=== PATIENT | female | born 1985 | race Caucasian/White ===

== ENCOUNTER 2020-05-23 14:19 | Outpatient (CLI) | payer BC ==
[2020-05-23 15:05] LABS: Protein/Creatinine Ratio,Urine 0.154
[2020-05-23 15:06] LABS: Creatinine,Urine Random 90.1 mg/dL
[2020-05-23 15:16] LABS: Appearance,Urine Cloudy (Clear); Bacteria,Urine Occasional /hpf; Bilirubin,Urine Negative (Negative); Blood,Urine Negative (Negative); Color,Urine Yellow; Glucose,Urine (UA) Negative (Negative); Hyaline Casts,Urine 4 /lpf (0-2); Ketones,Urine Negative (Negative); Leukocyte Esterase,Urine Negative (Negative); Mucus,Urine Rare /hpf; Nitrite,Urine Negative (Negative); Protein,Urine Negative (Negative); RBC,Urine 1 /hpf (0-5); Specific Gravity,Urine 1.017 (1.001-1.035); Squamous Epithelial Cell,Urine 10 /hpf (0-4); Urobilinogen,Urine <2.0 mg/dL (<2.0); WBC,Urine 9 /hpf (0-5)
[2020-05-23 15:32] LABS: ALT 11 U/L (4-34); AST 16 U/L (14-36); African American GFR (CKD) >90 (>60 ml/min/1.73 sqM); Blood Urea Nitrogen 10 mg/dL (7-17); LDH 415 U/L (313-618); Non-African American GFR(CKD) >90 (>60 ml/min/1.73 sqM); Uric Acid 4.6 mg/dL (3.7-7.4)
[2020-05-23 15:51] LABS: Basophils # (A) 0.1 k/uL (0-0.2); Basophils % (A) 0 %; Eosinophils # (A) 0.1 k/uL (0-0.7); Eosinophils % (A) 1 %; HGB 12.1 gm/dL (11.4-16.0); Lymphocytes # (A) 1.8 k/uL (1.0-4.8); Lymphocytes % (A) 12 %; MCH 26.6 pg (25.0-35.0); MCHC 31.7 g/dL (31.0-37.0); MCV 83.8 fL (80.0-100.0); Mean Platelet Volume 8.5; Monocytes # (A) 0.8 k/uL (0-1.0); Monocytes % (A) 5 %; Neutrophils # (A) 12.2 k/uL (1.3-7.7); Neutrophils % (A) 81 %; Platelet Count 192 k/uL (150-450); RBC 4.53 m/uL (3.80-5.40); RDW 15.5 % (11.5-15.5); WBC 15.1 k/uL (3.8-10.6)
--- NOTE | 2020-05-23 16:10 | US ---
EXAMINATION TYPE: US OB >= 14 wk fetus DATE OF EXAM: 05/23/2020 COMPARISON: None CLINICAL HISTORY: High BPHigh BP, 1 TECHNIQUE: Transabdominal (TA) GESTATIONAL AGE / DATING Physician Established: (38 weeks/1 days) EDC: 06/05/2020 Dates by LMP: Unknown Dates by First Scan: This is 1st scan here Dates by Current Scan: (38 weeks/0 days) EDC: 06/06/2020 SURVEY IUP: Single PLACENTA: Fundal/Posterior PREVIA: No Previa MIGUEL ANGEL: 12.6 cm Normal CERVICAL LENGTH (transabdominal: norm > 3.0cm): 4.0 cm BIOMETRY PRESENTATION: Vertex LIE: Longitudinal BPD: 9.5 cm 38 weeks / 6 days HC: 34.1 cm 39 weeks / 1 days AC: 34.0 cm 37 weeks / 6 days FL: 7.4 cm 37 weeks / 6 days ESTIMATED WEIGHT IN GRAMS: 3403 grams ESTIMATED WEIGHT IN LBS/OZ: 7 lbs. 8 oz. WEIGHT PERCENTAGE BASED ON ESTABLISHED DATES: 63% HC/AC: 1.00 Normal FL/AC: 21.79 Normal HEART RATE: 132 bpm RHYTHM: Normal Viable single IUP measuring 38 weeks 0 days with a heart rate of 132bpm and an estimated delivery marcy e of 06/06/2020. IMPRESSION: 1. Single intrauterine gestation estimated at 38 weeks 0 days gestation based on current ultrasound m easurements. Cardiac activity 132 bpm.
[2020-05-23 16:15] VITALS: BP 143/86; PULSE 85; RESP 16; TEMP 96.8
--- NOTE | 2020-06-12 08:29 | P.MSEPDOC ---
Presenting Problems - Arrival Data Date of Arrival on Unit: 05/23/20 Time of Arrival on Unit: 14:19 Mode of Transport: Ambulatory - Complaint OB-Reason for Admission/Chief Complaint: PIH Medical History - Information : 1 Para: 0 Term: 0 : 0 Abortions: Spontaneous or Elective: 0 Number of Living Children: 0 - Gestational Age Gestational Age by STACEY (wks/days): 38 Weeks and 1 Days Review of Systems - Review of Systems Constitutional: No problems Breast: No problems ENT: No problems Cardiovascular: No problems Respiratory: No problems Gastrointestinal: No problems Genitourinary: No problems Musculoskeletal: No problems Neurological: No problems Skin: No problems Vital Signs - Temperature Temperature: 96.8 F Temperature Source: Temporal Artery Scan - Pulse Pulse Oximetery Pulse Rate: 85 Pulse Assessment Method: Pulse Oximetry - Respirations Respiratory Rate: 16 Oxygen Delivery Method: Room Air O2 Sat by Pulse Oximetry: 98 - Blood Pressure Right Arm Blood Pressure: 143/86 Blood Pressure Mean: 105 Blood Pressure Source: Automatic Cuff Medical Screen Scoring (Pre) - Cervical Exam Dilation: Exam Deferred Effacement: Exam Deferred Membranes: Intact - Uterine Contractions Frequency: N/A Duration: N/A Intensity: N/A - Maternal Vital Signs Maternal Temperature: N/A Maternal Blood Pressure: Systolic >139 = 2 Signs of Preeclampsia: N/A Maternal Respirations: N/A - Maternal Trauma Maternal Trauma: N/A - Assessment - Baby A Baseline FHR: 125 Heart Rate - NICHD Category: Category I (Normal) = 0 NST: Reactive Position: N/A Station: N/A - Total Score - Baby A Total Score - Baby A: 2 - Total Score - Baby B Total Score - Baby B: 2 - Total Score - Baby C Total Score - Baby C: 2 - Level of Risk - Baby A Level of Risk - Baby A: Low (0-5) - Level of Risk - Baby B Level of Risk - Baby B: Low (0-5) - Level of Risk - Baby C Level of Risk - Baby C: Low (0-5) Physician Notification (Pre) - Physician Notified Physician Notified Date: 05/23/20 Physician Notified Time: 15:59 New Order Received: Yes - Notification Comment Comment: Dr. Ely called at office, report given on maternal and status, NST. reactive, all labs and urine WNL, protein/stencil cutter machine ratio 0.15, pt has no complaints at all,. U/S AFI12.6 and weight 7lb 8oz. Orders to discharge pt with instructions to rest. and to "take it easy" and go over s/s of preeclampsia. Follow up next week in the. office. Disposition - Disposition OB Disposition: Discharge to home Discharge Date: 05/23/20 Discharge Time: 16:05 I agree with the RN Medical Screening Exam: Yes Risk & Benefit of care provided described in d/c instruction: Yes Diagnosis: GESTATIONAL HTN W/O SIGNIFICANT PROTEINURIA, THIRD TRIMESTER
== END 2020-05-23 16:05 | disposition home or self-care (01) ==
LOC: FBPOP 14:19
PROVIDERS: ATTEND Obstetrics & Gynecology Obstetrics
DX: O13.3 Gestational [pregnancy-induced] hypertension without significant proteinuria, third trimester (principal); Z3A.38 38 weeks gestation of pregnancy
CPT/HCPCS: 59025; 76805; 81001; 82565; 82570; 83615; 84156; 84450; 84460; 84520; 84550; 85025; 99215

== ENCOUNTER 2020-06-05 09:22 | Inpatient (IN) | payer BC ==
[2020-06-05] MEDS ORDERED: DINOPROSTONE 10 MG INSERT.ER VAGINAL ONE (16:30)
[2020-06-05 17:34] LABS: Basophils % (A) 0 %; Eosinophils # (A) 0.1 k/uL (0-0.7); Eosinophils % (A) 1 %; HGB 12.3 gm/dL (11.4-16.0); Lymphocytes # (A) 1.9 k/uL (1.0-4.8); Lymphocytes % (A) 13 %; MCHC 32.3 g/dL (31.0-37.0); MCV 83.8 fL (80.0-100.0); Mean Platelet Volume 8.9; Monocytes # (A) 0.7 k/uL (0-1.0); Monocytes % (A) 5 %; Neutrophils # (A) 11.6 k/uL (1.3-7.7); Neutrophils % (A) 80 %; Platelet Count 213 k/uL (150-450); RBC 4.54 m/uL (3.80-5.40); RDW 15.1 % (11.5-15.5); WBC 14.4 k/uL (3.8-10.6)
[2020-06-06] MEDS ORDERED: TERBUTALINE 1 MG/ML VIAL SQ PRN (05:40)
[2020-06-06] MEDS ORDERED: OXYTOCIN 10 UNIT/ML 1 ML VIAL IM PRN (05:40)
[2020-06-06] MEDS ORDERED: METHYLERGONOVINE 0.2 MG/ML 1 ML AMP IM PRN (05:40)
[2020-06-06] MEDS ORDERED: LIDOCAINE 0.5% (PF) 5 MG/ML (50 ML SDV) SQ PRN (05:40)
[2020-06-06] MEDS ORDERED: CARBOPROST TROMETHAMINE 250 MCG/ML 1 ML AMP IM PRN (05:40)
[2020-06-06] MEDS: OXYTOCIN 30 UNITS/500 ML NS 30 UNIT in SALINE 1 500ML.BAG IV SCH ×2 (05:44→06:44)
[2020-06-06] MEDS: LACTATED RINGERS 1,000 ML IV SCH ×4 (05:44→19:56)
[2020-06-06] MEDS: BUTORPHANOL 1 MG/ML 1 ML VIAL IV PRN ×2 (10:46→12:56)
[2020-06-06] MEDS: LEVOTHYROXINE 125 MCG TAB PO SCH (11:43)
[2020-06-06] MEDS: PRENATAL VIT-IRON-FOLIC ACID 1 EACH CAP PO SCH (11:43)
[2020-06-06] MEDS ORDERED: ROPIVACAINE 5MG/ML 20ML VIAL ONE (13:00)
[2020-06-06] MEDS ORDERED: fentaNYL (PF) 50 MCG/ML 5 ML AMP ONE (13:00)
[2020-06-06] MEDS ORDERED: SODIUM CHLORIDE 0.9% 100 ML BAG ONE (13:00)
[2020-06-06] MEDS ORDERED: ceFAZolin 3 GM in SODIUM CHLORIDE 0.9% 100 ML IVPB ONE (16:06)
[2020-06-06] MEDS ORDERED: CITRIC ACID-SODIUM CITRATE 15 ML CUP PO ONE (16:06)
[2020-06-06] MEDS ORDERED: ONDANSETRON 4 MG/2 ML VIAL ONE (16:50)
[2020-06-06] MEDS ORDERED: OXYTOCIN 10 UNIT/ML 1 ML VIAL ONE (16:50)
[2020-06-06] MEDS ORDERED: MORPHINE SULFATE (PF) 0.3 MG/0.3 ML SYR ONE (16:50)
[2020-06-06] MEDS ORDERED: ACETAMINOPHEN TAB 325 MG TAB PO PRN ×2 (17:50→19:15)
[2020-06-06] MEDS ORDERED: diphenhydrAMINE 25 MG CAP PO PRN (17:50)
[2020-06-06] MEDS ORDERED: NALOXONE 0.4 MG/ML 1 ML VIAL IV PRN (17:50)
[2020-06-06] MEDS ORDERED: diphenhydrAMINE 50 MG/ML 1 ML VIAL IVP PRN ×2 (17:50)
[2020-06-06] MEDS ORDERED: SIMETHICONE 80 MG CHEWABLE PO PRN (17:50)
[2020-06-06] MEDS ORDERED: ONDANSETRON 4 MG/2 ML VIAL IVP PRN (17:50)
[2020-06-06] MEDS ORDERED: HYDROcodone/APAP 5-325MG 1 EACH TAB PO PRN (17:50)
[2020-06-06] MEDS ORDERED: diphenhydrAMINE 50 MG CAP PO PRN (17:50)
[2020-06-06] MEDS ORDERED: METOCLOPRAMIDE 5 MG/ML 2 ML VIAL IVP PRN (17:50)
[2020-06-06] MEDS ORDERED: ACETAMINOPHEN IV (For NPO) 1,000 MG in EMPTY BAG 1 BAG IVPB ONE ×2 (17:50→19:15)
[2020-06-06] MEDS ORDERED: ZOLPIDEM 5 MG TAB PO PRN (17:50)
--- NOTE | 2020-06-06 17:57 | P.HPOB ---
History of Present Illness H&P Date: 06/05/20 Chief Complaint: IUP at 40-0/7 weeks This is a pleasant 35-year-old 1 para 0 at 40-0/7 weeks that presents to labor and delivery for induction of labor. Patient was a fertility patient, conceived with IVF. Patient has been receiving routine care which has been essentially uncomplicated. Patient notes good movement, denies vaginal bleeding or loss of fluid. On bloodwork patient has a blood type of A pos, Rubella immune, HBsAG neg, GBS neg Review of Systems Constitutional: Denies chills, Denies fatigue, Denies fever Ears, nose, mouth and throat: Denies headache Cardiovascular: Reports leg edema Respiratory: Denies dyspnea Gastrointestinal: Denies constipation, Denies diarrhea, Denies nausea, Denies vomiting Genitourinary: Reports Past Medical History History of Any Multi-Drug Resistant Organisms: None Reported Smoking Status: Never smoker - Past Family History Mother Family Medical History: No Reported History Medications and Allergies Home Medications Medication Instructions Recorded Confirmed Type Levothyroxine Sodium [Synthroid] 125 mcg PO DAILY 05/23/20 06/05/20 History Pnv No.95/Ferrous Fum/Folic AC 1 each PO DAILY 05/23/20 06/05/20 History [ Multivitamin Tablet] Allergies Allergy/AdvReac Type Severity Reaction Status Date / Time acetaminophen [From Vicodin] AdvReac Unknown Verified 06/05/20 16:18 hydrocodone [From Vicodin] AdvReac Unknown Verified 06/05/20 16:18 Exam Osteopathic Statement: *. No significant issues noted on an osteopathic structural exam other than those noted in the History and Physical/Consult. Intake and Output 06/05/20 06/05/20 06/05/20 06:59 14:59 22:59 Other: Weight 141.521 kg Targeted physical state in general this a well-nourished female distress, breathing is noted to be nonlabored, heart has regular rhythm, abdomen is gravid, on cervical exam she is fingertip/50/-3 station Cervidil is placed without difficulty. heart tones are noted to be category 1, she is not ramya. Results Result Diagrams: 06/05/20 17:00 Assessment and Plan (1) Term Current Visit: Yes Status: Acute Code(s): Z34.90 - ENCNTR FOR SUPRVSN OF NORMAL , UNSP, UNSP TRIMESTER SNOMED Code(s): 20681898 (2) Conceived by in vitro fertilization Current Visit: Yes Status: Acute Code(s): Z78.9 - OTHER SPECIFIED HEALTH STATUS SNOMED Code(s): 368608809 Plan: This pleasant 35-year-old 1 para 0 at 40-0/7 weeks was admitted to labor and delivery for planned induction of labor. Patient conceived with IVF, and desires induction of labor at term. Cervidil induction is discussed and Cervidil is placed. We'll plan removal around 5 AM, with Pitocin augmentation of labor to begun soon afterwards. Plans are reviewed and questions are answered. Patient is counseled on options for analgesia during labor including Stadol and epidural.
[2020-06-06] MEDS ORDERED: OXYTOCIN 20 UNITS/1000 ML NS 1,000 ML IV SCH (18:00)
--- NOTE | 2020-06-06 18:27 | P.OP ---
Date of Procedure: 06/06/20 Preoperative Diagnosis: IUP @ 40 0/7 weeks, arrest of first stage of labor Postoperative Diagnosis: same Procedure(s) Performed: primary LTCS Anesthesia: epidural Surgeon: Catalina Ely Principal Solutions Architect #1: Marty Estrella Estimated Blood Loss (ml): 500 IV fluids (ml): 1,000 Urine output (ml): 100 Pathology: none sent Condition: stable Disposition: observation Indications for Procedure: 35yo that presents for IOL, she was admitted last evening for cervidil induction. she had minimal contractions throughout the night, cervidil was removed in the am and cervix was noted to be 1cm. patient underwent amniotomy, clear fluid was obtained. she made minimal change throughout the day, she was given the option of LTCS, which she elected to proceed with. Operative Findings: normal uterus tubes and ovaries are appreciated. live born male infant delivered at 1709, weight 8-12, apgars 8-9 at 1 and 5 mins respectively. Description of Procedure: The patient was prepped and draped in the usual fashion after spinal anesthesia was administered by anesthesia. A Pfannenstiel incision was made and extended of the abdominal cavity without difficulty. The bladder peritoneum was elevated and incised and reflected distally. A 2 cm incision was made in the transverse plane of the lower uterine segment to enter the uterus at which time clear fluid was noted. The incision was extended in both directions bluntly. The head was encountered within the field and delivered up and through the incision where the nose and mouth were thoroughly suctioned. Remainder of the infant was delivered onto the surgical field where the cord was doubly clamped, cut, and the infant was passed for resuscitative measures with weight and Apgars as noted above. A segment of cord was then doubly clamped, cut, and set aside should cord gases become necessary. The placenta was delivered manually, intact, and was grossly normal with a grossly normal three-vessel cord. The uterus was exteriorized and the interior cavity of the uterus swept of any remaining placental and membranous fragments with a laparotomy sponge. The margins of the incision were grasped with allis clamps and the incision closed in 2 layers. First layer was a running locking layer of 0 vicryl from margin to margin followed by a second layer of imbricating 0 vicryl from margin to margin. Any small points of bleeding were then made hemostatic with the Bovie. Once hemostasis was achieved, the posterior cul-de-sac was suctioned with a guard and the uterine and ovarian findings are as noted above. The uterus was replaced within the abdominal cavity and the gutters swept of any remaining blood fluid or clot. The incision was again reexamined and hemostasis was noted to be excellent. Any small point of bleeding were made hemostatic with the Bovie. Once hemostasis was achieved the parietal peritoneum was loosely reapproximated. The layer of muscles were examined and made hemostatic with the Bovie. Attention was then turned to the fascia which was closed with 2 running stitches of 0 Vicryl proceeding from the lateral margins to the midpoint. The subcutane ous tissues were irrigated, made hemostatic with the Bovie, and reapproximated with a running stitch of 30 vicryl. The skin was reapproximated with 4-0 vicryl. Estimated blood loss for the case was approximately 500 mL. All sponge instrument and needle counts are correct. There were no complications. The patient tolerated the procedure well and proceeded to the recovery room in stable condition. Both mother and are resting comfortably in recovery.
[2020-06-06] MEDS: IBUPROFEN IV 800 MG in SODIUM CHLORIDE 0.9% 250 ML IV ONE (18:48)
[2020-06-06] MEDS ORDERED: Acetaminophen-Codeine 300-30mg TAB PO PRN (19:18)
[2020-06-06] MEDS: SENNOSIDES-DOCUSATE SODIUM 1 EACH TAB PO SCH (22:38)
[2020-06-07] MEDS: IBUPROFEN IV 800 MG in SODIUM CHLORIDE 0.9% 250 ML IV ONE ×2 (01:01→02:01)
[2020-06-07] MEDS: LACTATED RINGERS 1,000 ML IV SCH (04:59)
[2020-06-07] MEDS: LEVOTHYROXINE 125 MCG TAB PO SCH (05:41)
--- NOTE | 2020-06-07 07:13 | P.PN ---
Progress Note - Text Progress Note Date: 06/07/20 Pt seen and examined at bedside. POD #1 from with spinal duramorph. Patient site is clean without erythema and swelling. Patient is able to ablulate without difficulty. Patient denies WEISS, fever, chills, back pain. All questions answered. Jos Dumont DO
[2020-06-07 07:16] LABS: Basophils % (A) 0 %; Eosinophils # (A) 0.1 k/uL (0-0.7); Eosinophils % (A) 1 %; HCT 32.6 % (34.0-46.0); HGB 10.4 gm/dL (11.4-16.0); Lymphocytes # (A) 1.5 k/uL (1.0-4.8); Lymphocytes % (A) 11 %; MCH 26.8 pg (25.0-35.0); MCHC 31.7 g/dL (31.0-37.0); MCV 84.4 fL (80.0-100.0); Mean Platelet Volume 9.3; Monocytes # (A) 0.9 k/uL (0-1.0); Monocytes % (A) 7 %; Neutrophils # (A) 11.5 k/uL (1.3-7.7); Neutrophils % (A) 81 %; Platelet Count 150 k/uL (150-450); RBC 3.86 m/uL (3.80-5.40); RDW 15.6 % (11.5-15.5); WBC 14.2 k/uL (3.8-10.6)
[2020-06-07] MEDS: SENNOSIDES-DOCUSATE SODIUM 1 EACH TAB PO SCH ×2 (08:30→20:09)
--- NOTE | 2020-06-07 08:38 | P.PNOBGPC ---
Subjective - Subjective Principal diagnosis: POD 1 LTCS Interval history: pt is doing well this am, no complaints, lochis is minimal. she states her pain is well controlled. she is ambulating and voiding without difficulty. she denies n/v and is tolerating a regular diet. she is breast feeding without difficulty Patient reports: Reports appetite normal, Reports voiding normally, Reports pain well controlled, Reports ambulating normally : doing well, nursing well Objective - Vital Signs Latest vital signs: Vital Signs Temp Pulse Resp BP Pulse Ox 06/07/20 04:00 98.3 F 72 16 109/63 99 06/07/20 00:00 98.2 F 83 16 117/70 06/06/20 19:41 97.4 F L 92 16 127/60 06/06/20 19:11 98.6 F 84 18 128/58 99 06/06/20 18:41 80 17 132/63 100 06/06/20 18:26 78 17 122/57 100 06/06/20 18:11 88 17 129/60 06/06/20 17:56 86 17 148/65 96 06/06/20 17:41 98.6 F 88 18 120/57 Intake and Output 06/06/20 06/07/20 06/07/20 22:59 06:59 14:59 Output Total 800 1550 Balance -800 -1550 Output: Urine 800 1550 Straight 400 1400 Other: Voiding Method Indwelling Catheter # Voids 1 - Exam Extremities: Present: normal, edema Abdomen: Present: normal appearance Incision: Present: normal, dry Uterus: Present: normal, firm - Labs Labs: Abnormal Lab Results - Last 24 Hours (Table) 06/07/20 Range/Units 06:47 WBC 14.2 H (3.8-10.6) k/uL Hgb 10.4 L (11.4-16.0) gm/dL Hct 32.6 L (34.0-46.0) % RDW 15.6 H (11.5-15.5) % Neutrophils # 11.5 H (1.3-7.7) k/uL Assessment and Plan (1) Term Current Visit: Yes Status: Acute Code(s): Z34.90 - ENCNTR FOR SUPRVSN OF NORMAL , UNSP, UNSP TRIMESTER SNOMED Code(s): 46513583 (2) Conceived by in vitro fertilization Current Visit: Yes Status: Acute Code(s): Z78.9 - OTHER SPECIFIED HEALTH STATUS SNOMED Code(s): 273197678 (3) Arrest of descent, delivered, current hospitalization Current Visit: Yes Status: Acute Code(s): O62.1 - SECONDARY UTERINE INERTIA SNOMED Code(s): 02013479 (4) Arrest of dilation, delivered, current hospitalization Current Visit: Yes Status: Acute Code(s): O62.1 - SECONDARY UTERINE INERTIA SNOMED Code(s): 99017338 (5) S/P section Current Visit: Yes Status: Acute Code(s): Z98.891 - HISTORY OF UTERINE SCAR FROM PREVIOUS SURGERY SNOMED Code(s): 047400542 Plan: this G1 now P1 s/p LTCS is doing well. will plan to continue routine PP care. I do anticipate discharge home tomorrow
[2020-06-07] MEDS: IBUPROFEN 600 MG TAB PO PRN ×2 (15:59→22:30)
[2020-06-07] MEDS: PRENATAL VIT-IRON-FOLIC ACID 1 EACH CAP PO SCH (16:01)
[2020-06-08 02:08] VITALS: RESP 16
[2020-06-08] MEDS: LEVOTHYROXINE 125 MCG TAB PO SCH (06:17)
[2020-06-08] MEDS: IBUPROFEN 600 MG TAB PO PRN (06:18)
[2020-06-08] MEDS: SENNOSIDES-DOCUSATE SODIUM 1 EACH TAB PO SCH (07:39)
[2020-06-08 08:12] VITALS: BP 151/81; PULSE 83; TEMP 98.2
--- NOTE | 2020-06-08 09:30 | P.DS ---
Providers Date of admission: 06/05/20 16:17 Expected date of discharge: 06/08/20 Attending physician: Catalina Ely Primary care physician: Stated None - Discharge Diagnosis(es) (1) Term Current Visit: Yes Status: Acute (2) Conceived by in vitro fertilization Current Visit: Yes Status: Acute (3) Arrest of descent, delivered, current hospitalization Current Visit: Yes Status: Acute (4) Arrest of dilation, delivered, current hospitalization Current Visit: Yes Status: Acute (5) S/P section Current Visit: Yes Status: Acute Hospital Course: This pleasant 35-year-old 1 para 0 presented to the hospital for induction of labor at 40-0/7 weeks. Patient was admitted and Cervidil induction was begun. Patient was noted to be 1 cm in the morning and amniotomy was performed and clear fluid was obtained. Patient made very minimal progress throughout the day therefore elected primary secondary to arrest of dilation and descent. Patient underwent primary without difficulty. For further details on the please see the operative report. Patient's postoperative course has been uneventful. On this postoperative day #2 she is ambulating and voiding without difficulty. She is tolerating a regular diet without nausea or vomiting. She states her pain is well-controlled. She denies concerns and does wish discharge home on this postoperative day #2. Patient Condition at Discharge: Good Plan - Discharge Summary New Discharge Prescriptions: No Action Pnv No.95/Ferrous Fum/Folic AC [ Multivitamin Tablet] 1 each PO DAILY Levothyroxine Sodium [Synthroid] 125 mcg PO DAILY Discharge Medication List Levothyroxine Sodium [Synthroid] 125 mcg PO DAILY 05/23/20 [History] Pnv No.95/Ferrous Fum/Folic AC [ Multivitamin Tablet] 1 each PO DAILY 05/23/20 [History] Follow up Appointment(s)/Referral(s): Catalina Ely DO [Doctor of Osteopathic Medicine] - 2 Weeks Patient Instructions/Handouts: (DC), (GEN)
== END 2020-06-08 13:00 | disposition home or self-care (01) | DRG 788 ==
LOC: 4FBP 16:17
PROVIDERS: ADMIT Obstetrics & Gynecology Obstetrics; ATTEND Obstetrics & Gynecology Obstetrics
PROC: 00HU33Z Insertion of Infusion Device into Spinal Canal, Percutaneous Approach (ICD-10-PCS; principal; 2020-06-06 06:30)
PROC: 10907ZC Drainage of Amniotic Fluid, Therapeutic from Products of Conception, Via Natural or Artificial Opening (ICD-10-PCS; principal; 2020-06-06 06:30)
PROC: 10D00Z1 Extraction of Products of Conception, Low, Open Approach (ICD-10-PCS; principal; 2020-06-06 06:30)
PROC: 3E0R3BZ Introduction of Anesthetic Agent into Spinal Canal, Percutaneous Approach (ICD-10-PCS; principal; 2020-06-06 06:30)
PROC: 3E033VJ Introduction of Other Hormone into Peripheral Vein, Percutaneous Approach (ICD-10-PCS; principal; 2020-06-06 06:30)
DX: O62.0 Primary inadequate contractions (principal); O63.0 Prolonged first stage (of labor); Z3A.40 40 weeks gestation of pregnancy; Z37.0 Single live birth; Z79.890 Hormone replacement therapy; Z79.899 Other long term (current) drug therapy
CPT/HCPCS: 85025; 86850; 86900; 86901

== ENCOUNTER → 2022-07-14 | Outpatient (CLI) | payer MEDICAID ==
[2022-07-14 14:23] LABS: HCT 41.3 % (37.2-46.3); HGB 13.7 g/dL (12.0-15.0); MCHC 33.2 g/dL (32.0-37.0); MCV 84.3 fL (80.0-97.0); Mean Platelet Volume 11.5 fL (9.5-12.2); NRBC Per 100 WBC 0 /100 WBCS (0.0-0.0); Platelet Count 229 X 10*3/uL (140-440); RDW 13.7 % (11.5-14.5); WBC 9.52 X 10*3/uL (4.50-10.00)
[2022-07-14 14:57] LABS: Non-African American GFR(CKD) 116.4 (60.0-200.0)
[2022-07-14 15:05] LABS: Hepatitis B Surface Antigen Nonreactive (Nonreactive); Hepatitis C IgG Antibody Nonreactive (Nonreactive)
[2022-07-16 04:00] LABS: HIV 2 AB Non-Reactive (Non-Reactive); HIV AB P24 Non-Reactive (Non-Reactive); HIV P24 AG Non-Reactive (Non-Reactive)
== END | disposition home or self-care (01) ==
LOC: LABWHC1 10:17
PROVIDERS: ATTEND Obstetrics & Gynecology
DX: Z34.81 Encounter for supervision of other normal pregnancy, first trimester (principal); R53.83 Other fatigue; Z3A.00 Weeks of gestation of pregnancy not specified
CPT/HCPCS: 36415; 82565; 82947; 85027; 86762; 86780; 86803; 86850; 86900; 86901; 87340; 87390

== ENCOUNTER → 2022-08-15 | Outpatient (CLI) | payer MEDICAID | END | disposition home or self-care (01) | LOC: LABWHC1 11:05 | PROVIDERS: ATTEND Obstetrics & Gynecology | DX: Z34.82 Encounter for supervision of other normal pregnancy, second trimester (principal); Z3A.00 Weeks of gestation of pregnancy not specified | CPT/HCPCS: 36415 ==

== ENCOUNTER → 2022-10-10 | Outpatient (CLI) | payer MEDICAID | END | disposition home or self-care (01) | LOC: LABWHC1 15:36 | PROVIDERS: ATTEND Obstetrics & Gynecology | DX: Z34.82 Encounter for supervision of other normal pregnancy, second trimester (principal); Z3A.00 Weeks of gestation of pregnancy not specified | CPT/HCPCS: 36415; 82950 ==

== ENCOUNTER 2023-01-05 01:16 | Outpatient (CLI) | payer OTHER ==
[2023-01-05 01:36] LABS: Appearance,Urine Cloudy (Clear); Bacteria,Urine Moderate /hpf; Bilirubin,Urine Negative (Negative); Blood,Urine Negative (Negative); Color,Urine Light Yellow; Glucose,Urine (UA) Negative (Negative); Ketones,Urine Negative (Negative); Leukocyte Esterase,Urine Negative (Negative); Mucus,Urine Rare /hpf; Nitrite,Urine Negative (Negative); PH, Urine 6.5 (5.0-8.0); Protein,Urine Negative (Negative); RBC,Urine 1 /hpf (0-5); Specific Gravity,Urine 1.014 (1.001-1.035); Squamous Epithelial Cell,Urine 12 /hpf (0-4); Urobilinogen,Urine <2.0 mg/dL (<2.0); WBC,Urine 3 /hpf (0-5)
[2023-01-05 01:45] LABS: Basophils # (A) 0.1 k/uL (0-0.2); Basophils % (A) 0 %; Eosinophils # (A) 0.2 k/uL (0-0.7); Eosinophils % (A) 1 %; HCT 35.5 % (34.0-46.0); HGB 11.7 gm/dL (11.4-16.0); Lymphocytes % (A) 16 %; MCH 26.9 pg (25.0-35.0); MCHC 33.1 g/dL (31.0-37.0); MCV 81.1 fL (80.0-100.0); Mean Platelet Volume 8.7; Monocytes # (A) 0.6 k/uL (0-1.0); Monocytes % (A) 5 %; Neutrophils # (A) 9.5 k/uL (1.3-7.7); Neutrophils % (A) 76 %; Platelet Count 211 k/uL (150-450); RBC 4.38 m/uL (3.80-5.40); RDW 15.5 % (11.5-15.5); WBC 12.5 k/uL (3.8-10.6)
[2023-01-05 01:47] LABS: Creatinine,Urine Random 84.5 mg/dL; Protein/Creatinine Ratio,Urine 0.26
[2023-01-05 01:55] LABS: INR 0.9 (<1.2); Partial Thromboplastin Time 23.7 sec (22.0-30.0); Prothrombin Time 9.7 sec (9.0-12.0)
[2023-01-05 01:59] LABS: ALT 18 U/L (4-34); AST 17 U/L (14-36); African American GFR (CKD) >90 (>60 ml/min/1.73 sqM); Blood Urea Nitrogen 9 mg/dL (7-17); LDH 361 U/L (313-618); Magnesium 1.5 mg/dL (1.6-2.3); Non-African American GFR(CKD) >90 (>60 ml/min/1.73 sqM); Uric Acid 4.1 mg/dL (3.7-7.4)
[2023-01-05 02:44] VITALS: BP 142/84; PULSE 91; RESP 16; TEMP 97.1
--- NOTE | 2023-01-12 23:28 | P.MSEPDOC ---
Presenting Problems - Arrival Data Date of Arrival on Unit: 01/05/23 Time of Arrival on Unit: 01:16 Mode of Transport: Ambulatory - Complaint OB-Reason for Admission/Chief Complaint: PIH Comment: transferred from [facility] for PIH work up Medical History - Information : 2 Para: 1 Term: 1 : 0 Abortions: Spontaneous or Elective: 0 Number of Living Children: 1 - Gestational Age Gestational Age by STACEY (wks/days): 36 Weeks and 6 Days - History Complications: Prior Comment: AMA and bronchitis for 3 weeks. Review of Systems - Review of Systems Constitutional: No problems Breast: No problems ENT: No problems Cardiovascular: No problems Respiratory: No problems Gastrointestinal: No problems Genitourinary: No problems Musculoskeletal: No problems Neurological: No problems Skin: No problems Vital Signs - Temperature Temperature: 97.1 F Temperature Source: Temporal Artery Scan - Pulse Right Brachial Pulse Rate: 91 Pulse Assessment Method: Automatic Cuff - Respirations Respiratory Rate: 16 Oxygen Delivery Method: Room Air O2 Sat by Pulse Oximetry: 98 - Blood Pressure Right Arm Blood Pressure: 142/84 Blood Pressure Mean: 103 Blood Pressure Source: Automatic Cuff Medical Screen Scoring - Assessment - Baby A Baseline FHR: 140 Heart Rate - NICHD Category: Category I (Normal) NST: Reactive Physician Notification - Physician Notified Physician Notified Date: 01/05/23 Physician Notified Time: 02:14 Physician: Natalia Cintron - Notification Comment Comment: Dr. Cintron called with report on patient that was transferred from [facility] for a PIH work up. All blood pressures, labs, and symptoms reviewed. Patient to follow. up in ER if she desires or keep next scheduled appointment on 01/07/[address] Howard. Maternal Triage Index - Maternal Triage Index Presenting for scheduled procedure w/no complaint: No - Stat/Priority 1 Stat Priority 1: No - Urgent/Priority 2 Urgent Priority 2: No - Prompt/Priority 3 Prompt Priority 3: Yes Criteria Met for Priority 3: transferred for PIH workup Disposition - Disposition OB Disposition: Discharge to home Discharge Date: 01/05/23 Discharge Time: 02:20 I agree with the RN Medical Screening Exam: Yes Case reviewed; plan agreed upon as documented in EMR&OBIX.: Yes Diagnosis: GESTATIONAL HTN W/O SIGNIFICANT PROTEINURIA, THIRD TRIMESTER
== END 2023-01-05 02:17 ==
LOC: FBPOP 01:16
PROVIDERS: ATTEND Obstetrics & Gynecology
DX: O13.3 Gestational [pregnancy-induced] hypertension without significant proteinuria, third trimester (principal); Z3A.36 36 weeks gestation of pregnancy; Z88.6 Allergy status to analgesic agent; Z88.5 Allergy status to narcotic agent
CPT/HCPCS: 36415; 59025; 81001; 82565; 82570; 83615; 83735; 84156; 84450; 84460; 84520; 84550; 85025; 85384; 85610; 85730; 96360; 99215

== ENCOUNTER 2023-01-22 05:44 | Inpatient (IN) | payer MEDICAID, OTHER ==
[2023-01-15 15:09] VITALS: BMI 42.1
--- NOTE | 2023-01-21 07:29 | P.HPOB ---
History of Present Illness H&P Date: 01/21/23 Chief Complaint: Previous section desires repeat. Also requests pe rmanent steriliz This patient is a pleasant 37-year-old 2 para 1 female estimated date of confinement 01/27/2023 estimated gestational age 39-2/7 weeks who presents to labor and delivery for elective repeat section and also was requesting permanent sterilization. is the product of an embryo transfer. She was referred to maternal- medicine for this reason and did have normal anatomy ultrasounds. Patient's been followed closely with growth ultrasounds and nonstress testing. She did have one episode at 34 weeks where she had elevated blood pressures however preeclampsia evaluation was negative and blood pressures returned to normal. Patient also developed a boil on her right upper abdomen and approximately 36 weeks that I had to Dev and drain this is landa bsequently resolved. Patient's had a previous section and at this time is requesting repeat and also wants to have permanent sterilization although she does have some embryos left over if she were to need them in the future. Review of Systems Genitourinary: Reports Menstruation: Reports amenorrhea Past Medical History Past Medical History: Thyroid Disorder Additional Past Medical History / Comment(s): Hypothyroid. HAD BRONCHITIS SEVERAL WEEKS AGO. WAS SEEN IN ER FOR POSSIBLE RIB FX AFTER COUGHING. STATES WAS FEELING BETTER, BUT COUGHED TODAY AND HAD PAIN IN HER RT SIDE AGAIN. History of Any Multi-Drug Resistant Organisms: None Reported Past Surgical History: Section, Orthopedic Surgery Additional Past Surgical History / Comment(s): Hip Sx-Pins at 13yo, 14yo Pin removal attempt, 23yo-Pins removed, WISDOM TEETH REMOVED Past Anesthesia/Blood Transfusion Reactions: No Reported Reaction Past Psychological History: No Psychological Hx Reported Smoking Status: Never smoker Past Alcohol Use History: None Reported Past Drug Use History: None Reported - Past Family History Mother Family Medical History: No Reported History Medications and Allergies Home Medications Medication Instructions Recorded Confirmed Type Levothyroxine Sodium [Synthroid] 125 mcg PO DAILY 05/23/20 01/15/23 History Pnv No.95/Ferrous Fum/Folic AC 1 each PO DAILY 05/23/20 01/15/23 History [ Multivitamin Tablet] Aspirin [[place] Aspirin EC] 81 mg PO DAILY 12/16/22 01/15/23 History Allergies Allergy/AdvReac Type Severity Reaction Status Date / Time acetaminophen [From Vicodin] AdvReac FAINTING Verified 01/15/23 14:56 hydrocodone [From Vicodin] AdvReac FAINTING Verified 01/15/23 14:56 Exam - OBG Physical Exam Abdomen: bowel sounds normal, no diffuse tenderness, no bruit present, no guarding noted, no hepatomegaly, no splenomegaly, no mass Vulva: both: normal Vagina: normal moisture, no discharge Cervix: no lesion, no discharge Uterus: enlarged Results labs show she is A positive, rubella immune, RPR nonreactive, hepatitis B and C were negative, HIV is nonreactive, group B strep was positive, ultrasounds shows normal anatomy and large for gestational age. Patient's had normal genetic testing of her embryo and a negative AFP testing. Assessment and Plan Assessment: This is a pleasant 37-year-old 2 para 1 female 39-2/7 weeks gestation who presents to labor and delivery for elective repeat section and also requesting permanent sterilization. Plan is repeat low transverse section and bilateral partial salpingectomy. Patient does understand the surgery and risks including risks of infection, bleeding, possible injury bowel, bladder, vessels, and/or other organs. Patient understands a tubal ligation is considered permanent however failures do occur less than 5 per thousand cases. All the patient's questions are answered and a written consent is obtained. (1) 39 weeks gestation of Status: Acute Code(s): Z3A.39 - 39 WEEKS GESTATION OF SNOMED Code(s): 45109484 (2) Previous delivery affecting Status: Acute Code(s): O34.219 - MATERNAL CARE FOR UNSP TYPE SCAR FROM PREVIOUS DEL SNOMED Code(s): 873166381 (3) Elderly multigravida Status: Acute Code(s): O09.529 - SUPERVISION OF ELDERLY MULTIGRAVIDA, UNSPECIFIED TRIMESTER SNOMED Code(s): 126491354 (4) Family planning Status: Acute Code(s): Z30.09 - ENCOUNTER FOR OTH GENERAL CNSL AND ADVICE ON CONTRACEPTION SNOMED Code(s): 745269275 (5) Group B streptococcal carriage complicating Status: Acute Code(s): O99.820 - STREPTOCOCCUS B CARRIER STATE COMPLICATING SNOMED Code(s): 781451279352158 (6) Morbid obesity Status: Acute Code(s): E66.01 - MORBID (SEVERE) OBESITY DUE TO EXCESS CALORIES SNOMED Code(s): 196652950
[2023-01-22] MEDS ORDERED: LACTATED RINGERS 1,000 ML IV ONE (06:08)
[2023-01-22] MEDS ORDERED: OXYTOCIN 10 UNIT/ML 1 ML VIAL IM PRN (06:08)
[2023-01-22] MEDS ORDERED: CARBOPROST TROMETHAMINE 250 MCG/ML 1 ML AMP IM PRN (06:08)
[2023-01-22] MEDS ORDERED: METHYLERGONOVINE 0.2 MG/ML 1 ML AMP IM PRN (06:08)
[2023-01-22] MEDS ORDERED: LACTATED RINGERS 1,000 ML IV SCH (06:08)
[2023-01-22] MEDS ORDERED: TRANEXAMIC ACID IN NACL,ISO-OS 1,000 MG in EMPTY BAG 1 BAG IV PRN (06:08)
[2023-01-22] MEDS ORDERED: miSOPROStoL 200 MCG TAB PO PRN (06:08)
[2023-01-22] MEDS ORDERED: CITRIC ACID-SODIUM CITRATE 15 ML CUP PO ONE (06:08)
[2023-01-22 06:51] LABS: Basophils % (A) 0 %; Eosinophils # (A) 0.1 k/uL (0-0.7); Eosinophils % (A) 1 %; HCT 34.4 % (34.0-46.0); HGB 11.6 gm/dL (11.4-16.0); Lymphocytes # (A) 1.7 k/uL (1.0-4.8); Lymphocytes % (A) 15 %; MCH 27.4 pg (25.0-35.0); MCHC 33.7 g/dL (31.0-37.0); MCV 81.2 fL (80.0-100.0); Mean Platelet Volume 8.9; Monocytes # (A) 0.7 k/uL (0-1.0); Monocytes % (A) 6 %; Neutrophils # (A) 8.6 k/uL (1.3-7.7); Neutrophils % (A) 76 %; Platelet Count 176 k/uL (150-450); RBC 4.24 m/uL (3.80-5.40); RDW 15.8 % (11.5-15.5); WBC 11.3 k/uL (3.8-10.6)
[2023-01-22] MEDS ORDERED: ceFAZolin 3 GM in SODIUM CHLORIDE 0.9% 100 ML IVPB ONE (07:00)
[2023-01-22] MEDS ORDERED: ONDANSETRON 4 MG/2 ML VIAL ONE (07:46)
[2023-01-22] MEDS ORDERED: NALBUPHINE 10 MG/ML (1 ML AMP) ONE (07:46)
[2023-01-22] MEDS ORDERED: MORPHINE SULFATE (PF) 0.3 MG/0.3 ML SYR ONE (07:46)
[2023-01-22] MEDS ORDERED: KETOROLAC 30 MG/ML 1 ML VIAL ONE (07:46)
[2023-01-22] MEDS ORDERED: ePHEDrine 50 MG/ML 1 ML VIAL ONE (07:46)
[2023-01-22] MEDS ORDERED: OXYTOCIN 30 UNITS/500 ML NS BAG IV ONE (07:46)
[2023-01-22] MEDS ORDERED: CELLULOSE,OXIDIZED 1 EACH EACH MISCELLANE ONE (08:20)
[2023-01-22] MEDS ORDERED: NALBUPHINE 10 MG/ML (1 ML AMP) IV PRN (08:21)
[2023-01-22] MEDS ORDERED: NALOXONE 0.4 MG/ML 1 ML VIAL IV PRN ×2 (08:21→08:59)
--- NOTE | 2023-01-22 08:55 | P.OP ---
Date of Procedure: 01/22/23 Preoperative Diagnosis: #1:39-2/7 week intrauterine . #2: Previous section desires repeat. #3: Multi parity desires permanent sterilization. #4: Elderly multigravida Postoperative Diagnosis: #1: same. #2: Pelvic adhesions/omental adhesions Procedure(s) Performed: #1: Repeat low transverse section. #2: Bilateral partial salpingectomy with lysis of adhesions #3:lysis of adhesions Anesthesia: spinal Surgeon: Franck Howard Investigations Manager #1: Natalia Cintron Estimated Blood Loss (ml): 1,300 Pathology: other (placenta and bilateral fallopian tube segments) Condition: stable Disposition: floor Indications for Procedure: Please see dictated H&P for intimate details of this patient's admission. In brief summary this is a pleasant 37-year-old 2 para 1 female estimated gestational age 39-2/7 weeks who presents to labor and delivery for elective repeat section and also requesting permanent sterilization. Patient understands this surgery and risks and risks of infection, bleeding, possible injury to bowel, bladder, vessels, and/or other organs. She also understands a tubal ligation is considered permanent however there is a failure rate of less than 5 per thousand procedures done. All the patient's questions are answered and a written consent is obtained. Operative Findings: This is a vigorous viable male Apgars 9 and 9 delivery time is 0806 hrs. There are multiple thick omental adhesions to the anterior abdominal wall and to the lower uterine segment from her previous section Description of Procedure: This patient is taken to the operating room where she is sat up and spinal anesthetic is administered without incident. With an adequate level of anesthesia, she has abdominal prep and drape. Scalpels then taken in the p revious Pfannenstiel incision is incised. A second scalpel is taken down to the fascia and the fascia scored with a knife. The fascia is then dissected sharply off the rectus muscles. The rectus muscles are and the peritoneum was identified and entered bluntly. Of note there were multiple thick omental adhesions at this time and these are cleared out of the way. Bladder blade is then placed. Bladder flap is taken down as best as possible again there is multiple adhesions here and this is done with the Metzenbaum scissors. Scalpels and taken a low transverse uterine incision is made. Using a hemostat I bluntly extended this incision and there is loss of clear fluid. Infant's head is then guided through the incision with fundal pressure delivered easily. Mouth and nares are bulb suctioned. There is a nuchal cord 1 which is easily reduced. With more fundal pressure deliver the rest this infant's body. This is a vigorous viable male Apgars are 9 and 9 delivery time was 0806 hrs. After delivery of the the umbilical cord is doubly clamped and cut appears to be trivascular. The placenta is then manually extracted intact. The uterus is then externalized. Wick's were placed on the uterine incision. Using a running 0 Vicryl suture in a locked fashion 2 layers are placed to reapproximate the uterine incision. There is an area on the left side on the corner that is bleeding and multiple sutures are placed in that area a [id number] until hemostasis is assured. There is also some omental adhesions which are clamped with a hemostat and ligated and reduced. We did place uterus back into the abdomen there is some bleeding on the left side again therefore is really externalized and the areas isolated and then ligated. Excellent hemostasis is noted this time. There is also an area on the anterior uterus where there was an adhesion that is raw and. Hemostasis is assured on this area. Then turned my attention a left fallopian tube and approximately 4 simmers the cornual insertion a small window is made to the mesial salpinx with Bovie cautery. Using a 2-0 silk I doubly ligate a 2 cm segment of the tube. The segment is excised and handed off to pathology. Cauterization is done of the tubal ends. Similar technique is done on the right side with similar results. Uterus is then placed back in the abdomen. All fluid is removed from the abdomen and pelvis. I did place some Interceed on the anterior uterus to prevent further adhesions. I also placed some surgical's note on the lower uterine segment because of the area that was bleeding for added hemostasis. Again excellent hemostasis is noted this time. With this done the rectus muscles reapproximated is best as possible. Fascia is then closed using 0 PDS i n running fashion. Fascial incision is intact and hemostatic. Subcutaneous tissues and closed using a 3-0 Vicryl. Skin is and closed using kiet. All counts are correct 3. There are no complications. Infant and mother are taken to the birthing suite in satisfactory condition.
[2023-01-22] MEDS ORDERED: OXYTOCIN 30 UNITS/500 ML NS 30 UNIT in SALINE 1 500ML.BAG IV SCH (08:59)
[2023-01-22] MEDS ORDERED: SIMETHICONE 80 MG CHEWABLE PO PRN (08:59)
[2023-01-22] MEDS ORDERED: ONDANSETRON 4 MG/2 ML VIAL IVP PRN (08:59)
[2023-01-22] MEDS ORDERED: diphenhydrAMINE 25 MG CAP PO PRN (08:59)
[2023-01-22] MEDS ORDERED: METOCLOPRAMIDE 5 MG/ML 2 ML VIAL IVP PRN (08:59)
[2023-01-22] MEDS ORDERED: diphenhydrAMINE 50 MG/ML 1 ML VIAL IVP PRN (08:59)
[2023-01-22] MEDS ORDERED: LANOLIN CREAM 5 GM TUBE TOPICAL PRN (08:59)
[2023-01-22] MEDS ORDERED: ZOLPIDEM 5 MG TAB PO PRN (08:59)
[2023-01-22] MEDS: LACTATED RINGERS 1,000 ML IV SCH ×2 (09:14→17:05)
[2023-01-22] MEDS: SENNOSIDES-DOCUSATE SODIUM 1 EACH TAB PO SCH ×2 (09:58→19:32)
[2023-01-22] MEDS: ACETAMINOPHEN TAB 500 MG TAB PO SCH ×3 (10:59→23:58)
[2023-01-22] MEDS: KETOROLAC 15 MG/ML 1 ML VIAL IVP SCH ×2 (14:52→20:17)
[2023-01-22] MEDS: IBUPROFEN 600 MG TAB PO SCH ×2 (16:31→21:10)
[2023-01-23] MEDS: LACTATED RINGERS 1,000 ML IV SCH ×3 (03:29→22:51)
[2023-01-23] MEDS: IBUPROFEN 600 MG TAB PO SCH ×4 (03:30→20:12)
[2023-01-23] MEDS: KETOROLAC 15 MG/ML 1 ML VIAL IVP SCH ×3 (03:30→22:50)
[2023-01-23] MEDS: ACETAMINOPHEN TAB 500 MG TAB PO SCH ×4 (06:04→21:03)
--- NOTE | 2023-01-23 07:06 | P.PN ---
Progress Note - Text Progress Note Date: 01/23/23 Postop day 1 from under spinal anesthesia with intrathecal morphine given for postop pain management. Patient is doing well. Pain is well controlled. On visual analog scale 2/10 Mild itching present No nausea or vomiting reported. No Headache or weakness and numbness in the legs. No complications from spinal anesthesia.
[2023-01-23 07:25] LABS: Basophils % (A) 0 %; Eosinophils # (A) 0.1 k/uL (0-0.7); Eosinophils % (A) 1 %; HCT 30.2 % (34.0-46.0); HGB 10.2 gm/dL (11.4-16.0); Lymphocytes # (A) 1.2 k/uL (1.0-4.8); Lymphocytes % (A) 12 %; MCH 27.4 pg (25.0-35.0); MCHC 33.8 g/dL (31.0-37.0); MCV 81.1 fL (80.0-100.0); Mean Platelet Volume 9.1; Monocytes # (A) 0.6 k/uL (0-1.0); Monocytes % (A) 6 %; Neutrophils # (A) 7.6 k/uL (1.3-7.7); Neutrophils % (A) 79 %; Platelet Count 157 k/uL (150-450); RBC 3.72 m/uL (3.80-5.40); WBC 9.6 k/uL (3.8-10.6)
--- NOTE | 2023-01-23 08:42 | P.PNOBGPC ---
Subjective - Subjective Principal diagnosis: Status post repeat with bilateral partial salpingectomy POD #1 Interval history: Patient is doing well. She is passing flatus but no bowel movement yet. She is ambulating. She is urinating without difficulty. Her pain is fairly well con trolled with ibuprofen and Tylenol. Patient reports: Reports appetite normal, Reports voiding normally, Reports pain well controlled, Reports ambulating normally : doing well Objective - Vital Signs Latest vital signs: Vital Signs Temp Pulse Resp BP Pulse Ox 01/23/23 03:56 98.3 F 79 16 129/82 99 01/23/23 00:00 97.9 F 81 16 127/79 98 01/22/23 19:40 98.0 F 85 16 113/74 97 01/22/23 16:00 97.6 F 86 16 119/79 99 01/22/23 11:22 97.6 F 88 16 111/69 98 01/22/23 10:45 88 18 128/69 01/22/23 10:15 98.9 F 83 18 121/57 98 01/22/23 09:45 97.6 F 96 18 129/63 99 01/22/23 09:29 97.6 F 92 18 129/65 98 01/22/23 09:15 94 18 129/65 98 01/22/23 09:00 97.4 F L 92 18 143/63 98 01/22/23 08:45 97.1 F L 96 18 128/79 98 Intake and Output 01/22/23 01/23/23 01/23/23 22:59 06:59 14:59 Intake Total 300 Output Total 400 250 Balance -100 -250 Intake: Oral 300 Output: Urine 400 250 Uretheral (Patrick) 250 Other: Voiding Method Toilet - Exam Extremities: Present: normal. Absent: tenderness, edema Abdomen: Present: normal appearance, soft (Positive bowel sounds 4). Absent: distention, tenderness Incision: Present: normal, dry, intact. Absent: erythematous Uterus: Present: normal, firm. Absent: tenderness - Labs Labs: Abnormal Lab Results - Last 24 Hours (Table) 01/23/23 Range/Units 06:26 RBC 3.72 L (3.80-5.40) m/uL Hgb 10.2 L (11.4-16.0) gm/dL Hct 30.2 L (34.0-46.0) % RDW 16.0 H (11.5-15.5) % Assessment and Plan Assessment: Status post repeat low transverse section with bilateral partial salpingectomy postoperative day #1 Plan: Patient is doing well. Will continue with postoperative and care today. Will advance diet as tolerated. May shower.
[2023-01-23] MEDS: SENNOSIDES-DOCUSATE SODIUM 1 EACH TAB PO SCH ×2 (09:17→21:03)
[2023-01-24] MEDS: IBUPROFEN 600 MG TAB PO SCH ×2 (00:19→05:55)
[2023-01-24 00:48] VITALS: PULSE 79
[2023-01-24] MEDS: ACETAMINOPHEN TAB 500 MG TAB PO SCH ×2 (03:09→08:58)
[2023-01-24 08:25] VITALS: BP 114/74; RESP 17; TEMP 97.7
--- NOTE | 2023-01-24 08:49 | P.DS ---
Providers Date of admission: 01/22/23 05:44 Expected date of discharge: 01/24/23 Attending physician: Franck Howard Primary care physician: Stated None Hospital Course: This is a 37-year-old female 2 para 1 at 39-2/7 weeks who presented for scheduled repeat section with bilateral partial salpingectomy on 01/22/[address] Howard. She delivered a viable male with scores of 9 at 1 minute and 9 at 5 minutes and weight of 9 lbs. 2 oz. Her postoperative course has been uncomplicated. Lochia is decreasing. Her pain is well-controlled with Tylenol and ibuprofen. She is breast-feeding. She is pa ssing flatus and bowel movement. She is urinating without difficulty. Vital signs are stable. Abdomen is soft with positive bowel sounds 4. Incision is clean dry and intact with kiet in place. Extremities show negative Homans. Impression is status post repeat low transverse section with bilateral partial salpingectomy postoperative day #2. Plan is to discharge home today. Routine postoperative and instructions are given. She is advised to follow up in the office in 1 week for a postoperative check and in 6 weeks for check. She is advised to call the office if she has any further questions or concerns prior to her appointment time. [place] will be removed and Steri-Strips placed prior to discharge. She will be given a prescription for ibuprofen. Procedures: Repeat low transverse section with bilateral partial salpingectomy on 01/22/2023 Patient Condition at Discharge: Stable Plan - Discharge Summary Discharge Rx Participant: Yes New Discharge Prescriptions: New Ibuprofen [Motrin] 600 mg PO Q6H #40 tab oxyCODONE HCL [OxyIR] 5 mg PO Q4HR PRN #18 tab PRN Reason: Pain Scale 4 - 6 No Action Pnv No.95/Ferrous Fum/Folic AC [ Multivitamin Tablet] 1 each PO DAILY Levothyroxine Sodium [Synthroid] 125 mcg PO DAILY Aspirin [[place] Aspirin EC] 81 mg PO DAILY Discharge Medication List Levothyroxine Sodium [Synthroid] 125 mcg PO DAILY 05/23/20 [History] Pnv No.95/Ferrous Fum/Folic AC [ Multivitamin Tablet] 1 each PO DAILY 05/23/20 [History] Aspirin [[place] Aspirin EC] 81 mg PO DAILY 12/16/22 [History] Ibuprofen [Motrin] 600 mg PO Q6H #40 tab 01/22/23 [Rx] oxyCODONE HCL [OxyIR] 5 mg PO Q4HR PRN #18 tab 01/22/23 [Rx] Follow up Appointment(s)/Referral(s): Franck Howard MD [STAFF PHYSICIAN] - 03/03/23 11:15 am (Post Op Appointment 02-02-2023 at 1:30pm) Activity/Diet/Wound Care/Special Instructions: Instructions 1. Do not begin any exercise program for 3 weeks. 2. Do not resume sexual relations for 3 weeks or longer if uncomfortable. 3. You may take tub baths or showers at any time. 4. You may use tampons if desired after 3 weeks. 5. Keep the area of episiotomy (stitches) clean and dry. 6. If you are not nursing, wear a good fitting, supportive bra during the day and limit fluid intake for at least 1 week to prevent breast engorgement. 7. Call the office, [phone], within the next week to make appointment for your 6 week checkup if it has not already been made. 8. Report any of the following occurrences to the doctor promptly: a. Heavy, excessive bleeding b. Chills, fever c. Burning or frequency of urination d. Pain or redness and breasts if nursing e. Increasing pain or swelling in episiotomy (stitches). In addition to the above instructions, the following additional should be followed: 1. No heavy lifting or straining (exercising) until after 6 week checkup. 2. Keep abdominal incision clean and dry: You may wear a dressing if more comfortable. 3. Make office appointment for 10 days after going home or as instructed by her doctor. Discharge Disposition: HOME SELF-CARE
[2023-01-24] MEDS: SENNOSIDES-DOCUSATE SODIUM 1 EACH TAB PO SCH (08:57)
== END 2023-01-24 12:10 | disposition home or self-care (01) | DRG 785 ==
LOC: 4FBP 05:44
PROVIDERS: ADMIT Obstetrics & Gynecology; ATTEND Obstetrics & Gynecology
PROC: 0UB70ZZ Excision of Bilateral Fallopian Tubes, Open Approach (ICD-10-PCS; 2023-01-22)
PROC: 0DNW0ZZ Release Peritoneum, Open Approach (ICD-10-PCS; 2023-01-22)
PROC: 10D00Z1 Extraction of Products of Conception, Low, Open Approach (ICD-10-PCS; principal; 2023-01-22 08:00)
DX: O34.211 Maternal care for low transverse scar from previous cesarean delivery (principal); O99.824 Streptococcus B carrier state complicating childbirth; O69.81X0 Labor and delivery complicated by cord around neck, without compression, not applicable or unspecified; E03.9 Hypothyroidism, unspecified; E66.01 Morbid (severe) obesity due to excess calories; O99.214 Obesity complicating childbirth; O99.284 Endocrine, nutritional and metabolic diseases complicating childbirth; N73.6 Female pelvic peritoneal adhesions (postinfective); O99.892 Other specified diseases and conditions complicating childbirth; Z30.2 Encounter for sterilization; Z37.0 Single live birth; Z3A.39 39 weeks gestation of pregnancy; Z79.82 Long term (current) use of aspirin; Z79.890 Hormone replacement therapy; Z88.6 Allergy status to analgesic agent; Z88.5 Allergy status to narcotic agent
CPT/HCPCS: 85025; 86850; 86900; 86901; 88302

== ENCOUNTER → 2023-04-01 | Outpatient (CLI) | payer OTHER | END | disposition home or self-care (01) | LOC: LABWHC1 15:11 | PROVIDERS: ATTEND Pediatrics | DX: B01.9 Varicella without complication (principal) | CPT/HCPCS: 36415; 86787 ==

== ENCOUNTER 2023-12-29 10:20 | Day surgery (SDC) | payer BC, OTHER ==
[2023-12-24 12:13] VITALS: BMI 41.8
[~2023-12-29 10:20] MED LIST: LIDOCAINE 1% (10MG/ML) FOR IV START INTRADERMA PRN
[2023-12-29] MEDS: LACTATED RINGERS 1,000 ML IV SCH (11:23)
[2023-12-29 11:34] VITALS: RESP 16; TEMP 98.2
[2023-12-29] MEDS ORDERED: LIDOCAINE 1% INJ 10MG/ML (20 ML MDV) ONE (11:38)
[2023-12-29] MEDS ORDERED: fentaNYL (PF) 50 MCG/ML 2 ML AMP ONE (11:38)
[2023-12-29] MEDS ORDERED: MIDAZOLAM 2 MG/2 ML VIAL ONE (11:38)
[2023-12-29] MEDS ORDERED: PROPOFOL 10 MG/ML 20 ML VIAL IV ONE (11:38)
--- NOTE | 2023-12-29 11:42 | P.GSHP ---
History of Present Illness H&P Date: 12/29/23 Chief Complaint: GERD, presurgical 38-year-old female here for EGD. Patient has mild reflux symptoms. Patient is being evaluated for surgical weight loss. No dysphagia. Past Medical History Past Medical History: Osteoarthritis (OA), Thyroid Disorder Additional Past Medical History / Comment(s): Hypothyroid. osteoarthritis bilateral hips. BARIATRIC EVAL History of Any Multi-Drug Resistant Organisms: None Reported Past Surgical History: Section, Orthopedic Surgery Additional Past Surgical History / Comment(s): Hip Sx-Pins at 13yo, 14yo Pin removal attempt, 23yo-Pins removed, Past Anesthesia/Blood Transfusion Reactions: No Reported Reaction Smoking Status: Never smoker - Past Family History Mother Family Medical History: No Reported History Father Family Medical History: Pulmonary Embolus Medications and Allergies Home Medications Medication Instructions Recorded Confirmed Type Levothyroxine Sodium [Synthroid] 125 mcg PO DAILY 05/23/20 12/24/23 History Allergies Allergy/AdvReac Type Severity Reaction Status Date / Time acetaminophen [From Vicodin] AdvReac FAINTING Verified 12/29/23 11:11 hydrocodone [From Vicodin] AdvReac FAINTING Verified 12/29/23 11:11 Surgical - Exam Vital Signs Temp Pulse Resp BP Pulse Ox 98.2 F 96 16 149/70 98 12/29/23 11:19 12/29/23 11:19 12/29/23 11:19 12/29/23 11:19 12/29/23 11:19 Physical exam: General: Well-developed, well-nourished HEENT: Normocephalic, sclerae nonicteric Abdomen: Nontender, nondistended Extremities: No edema Neuro: Alert and oriented Assessment and Plan (1) GERD (gastroesophageal reflux disease) Narrative/Plan: 38-year-old female with GERD symptoms. Will proceed with EGD at this time. Current Visit: Yes Status: Acute Code(s): K21.9 - GASTRO-ESOPHAGEAL REFLUX DISEASE WITHOUT ESOPHAGITIS SNOMED Code(s): 785355195
--- NOTE | 2023-12-29 11:50 | P.PCN ---
Date of Procedure: 12/29/23 Procedure(s) Performed: Preoperative Dx: GERD, presurgical Postoperative Dx: Mild gastritis, small gastric polyp Procedure: EGD with Bx Anesthesia: Sedation Endoscopist: Dr. Madrid Specimens: Antrum, gastric polyp Endoscopic Procedure: The patient was on the endoscopy table in the left decubitus position. The Olympus gastroscope was inserted into the oropharynx and passed under direct visualization to the region of the third portion of the duodenum. From that point the scope was slowly withdrawn inspecting all surfaces carefully. There were no neoplastic inflammatory or polypoid lesions throughout the duodenum. The pylorus was widely patent. The stomach was carefully inspected. There was mild gastritis present. A biopsy of the antrum took place to rule out H. pylori. Retroflexion revealed a normal hiatus. The patient has small gastric polyp that was removed using the cold biopsy forceps. The esophagus was then carefully examined. There were no neoplastic inflammatory or polypoid lesions throughout the visualized esophagus. The patient was then taken to the recovery room in stable condition per anesthesia guidelines. Recommendations: Await biopsy results. Follow-up bariatric center.
[2023-12-29 12:43] VITALS: BP 147/88; PULSE 65
== END 2023-12-29 12:43 | disposition home or self-care (01) ==
LOC: ORWHC2ENDO 10:20
PROVIDERS: ATTEND Surgery
DX: K29.50 Unspecified chronic gastritis without bleeding (principal); K31.7 Polyp of stomach and duodenum; K21.9 Gastro-esophageal reflux disease without esophagitis; Z88.5 Allergy status to narcotic agent; Z88.6 Allergy status to analgesic agent; Z79.890 Hormone replacement therapy
CPT/HCPCS: 81025; 88305; 43239; J2250; J2001; J3010; J2704

== ENCOUNTER → 2024-01-26 | Outpatient (CLI) | payer BC ==
[2024-01-26 14:23] VITALS: BP 123/83; PULSE 94; TEMP 98.1; BMI 42.6
--- NOTE | 2024-01-26 14:36 | P.BASOAP ---
Subjective Progress Note Date: 01/26/24 Principal diagnosis: Morbid obesity Patient returns after recent EGD. EGD being performed for mild reflux symptoms and preop for sleeve gastrectomy. She remains interested in sleeve gastrectomy. No changes to her history or physical exam since her last appointment in July. No new medications or doctors. Recent EGD showed gastritis and a small polyp. Biopsies benign. Objective - Vital Signs Vital signs: Vital Signs Temp 98.1 F 01/26/24 14:14 Pulse 94 01/26/24 14:14 Resp BP 123/83 01/26/24 14:14 Pulse Ox FiO2 Intake & Output 01/25/24 01/26/24 01/26/24 18:59 06:59 18:59 Weight 139.706 kg - Exam Abdomen: Soft, nontender, nondistended Assessment/Plan (1) Morbid obesity Narrative/Plan: 38-year-old female with morbid obesity. Will proceed with laparoscopic robotic assisted sleeve gastrectomy in February or April. Patient trying to decide on timing. Surgical consent form reviewed in detail. All questions answered. The risks of bleeding, infection, stenosis, stricture, leak, abscess, fistula formation, peritonitis, poor weight loss, reflux, vomiting, conversion to an open procedure, aborting sleeve gastrectomy, VA, PE, DVT, and were discussed. The patient understands and wishes to proceed. Plan: Date: 01/26/24 Initial Weight: 142.882 kg Initial BMI: 43.6 Current Weight: 139.706 kg Current BMI: 42.6 Type of Surgery: Total Volume in Band: Previous Volume: Volume Removed: Volume Added: Band Size:
== END ==
LOC: BARWHC3 14:00
PROVIDERS: ATTEND Surgery
DX: E66.01 Morbid (severe) obesity due to excess calories (principal); Z98.890 Other specified postprocedural states; Z68.41 Body mass index [BMI] 40.0-44.9, adult; Z88.1 Allergy status to other antibiotic agents; Z88.5 Allergy status to narcotic agent
CPT/HCPCS: 99211

== ENCOUNTER → 2024-03-07 | Outpatient (CLI) | payer BC ==
[2024-03-07 15:49] VITALS: BMI 43.7
== END ==
LOC: BARWHC3 12:56
PROVIDERS: ATTEND Surgery
DX: E66.01 Morbid (severe) obesity due to excess calories (principal); Z71.3 Dietary counseling and surveillance; Z68.41 Body mass index [BMI] 40.0-44.9, adult; Z88.1 Allergy status to other antibiotic agents; Z88.5 Allergy status to narcotic agent
CPT/HCPCS: 97804

== ENCOUNTER → 2024-05-18 | Outpatient (CLI) | payer BC ==
[2024-05-19 02:30] LABS: Basophils # (A) 0.06 X 10*3/uL (0.00-0.10); Basophils % (A) 0.5 %; Eosinophils # (A) 0.11 X 10*3/uL (0.04-0.35); Eosinophils % (A) 0.8 %; HCT 42.6 % (37.2-46.3); HGB 13.5 g/dL (12.0-15.0); Lymphocytes # (A) 3.06 X 10*3/uL (0.90-5.00); Lymphocytes % (A) 23.2 %; MCH 25.7 pg (27.0-32.0); MCHC 31.7 g/dL (32.0-37.0); Monocytes # (A) 0.85 X 10*3/uL (0.20-1.00); Monocytes % (A) 6.5 %; NRBC Per 100 WBC 0 X 10*3/uL (0.00-0.01); Neutrophils # (A) 9.04 X 10*3/uL (1.80-7.70); Neutrophils % (A) 68.6 %; Platelet Count 327 X 10*3/uL (140-440); RBC 5.26 X 10*6/uL (4.10-5.20); RDW 15.1 % (11.5-14.5); WBC 13.17 X 10*3/uL (4.50-10.00)
[2024-05-19 02:54] LABS: BUN/Creat Ratio 17.11 Ratio (12.00-20.00); Blood Urea Nitrogen 15.4 mg/dL (9.0-27.0); Carbon Dioxide 22.6 mmol/L (21.6-31.8); Chloride 103 mmol/L (96-109); Glucose 89 mg/dL (70-110); Potassium 4.6 mmol/L (3.5-5.5); Sodium 138 mmol/L (135-145)
[2024-05-19 02:55] LABS: ALT 51 U/L (8-44); AST 38 U/L (13-35); Albumin 4.7 g/dL (3.8-4.9); Albumin/Globulin Ratio 1.62 Ratio (1.60-3.17); Alkaline Phosphatase 74 U/L (41-126); Calcium 9.7 mg/dL (8.7-10.3); Globulin 2.9 g/dL (1.6-3.3); Total Bilirubin 0.3 mg/dL (0.3-1.2); Total Protein 7.6 g/dL (6.2-8.2)
== END | disposition home or self-care (01) ==
LOC: LABPAT 16:14
PROVIDERS: ATTEND Surgery
DX: Z01.812 Encounter for preprocedural laboratory examination (principal)
CPT/HCPCS: 36415; 80053; 85025; 86850; 86900; 86901

== ENCOUNTER 2024-05-23 06:25 | Observation (INO) | payer BC ==
[~2024-05-23 06:25] MED LIST changes: -LIDOCAINE 1% (10MG/ML) FOR IV START INTRADERMA PRN; +ONDANSETRON 4 MG/2 ML VIAL IVP PRN; +fentaNYL (PF) 50 MCG/ML 2 ML AMP IV PRN
[2024-05-23] MEDS: IV FLUID CONTINUATION 1,000 ML IV ONE ×3 (06:59→15:45)
[2024-05-23] MEDS: ACETAMINOPHEN TAB 500 MG TAB PO PRN (07:08)
[2024-05-23] MEDS: SCOPOLAMINE 1 MG/72 HR PATCH TRANSDERM STA (07:09)
[2024-05-23] MEDS: DEXAMETHASONE SOD PHOSPHATE 4 MG/ML 1 ML VIAL IV ONE (07:12)
[2024-05-23] MEDS: ONDANSETRON 4 MG/2 ML VIAL IVP ONE (07:12)
[2024-05-23] MEDS: LACTATED RINGERS 1,000 ML IV SCH (07:17)
--- NOTE | 2024-05-23 07:18 | P.GSHP ---
History of Present Illness H&P Date: 05/23/24 Chief Complaint: Morbid obesity 39-year-old female presents with a BMI of 40.7 today. She was initially seen last July. At that time patient's BMI was 43. Patient has comorbidities including joint pain, reflux, PCOS, hypothyroidism. No history of DVT or dysphagia. No tobacco use. Recent EGD showed gastritis and a small polyp. Patient remains interested in sleeve gastrectomy. Past Medical History Past Medical History: Osteoarthritis (OA), Thyroid Disorder Additional Past Medical History / Comment(s): Hypothyroid. osteoarthritis bilateral hips. BARIATRIC EVAL History of Any Multi-Drug Resistant Organisms: None Reported Past Surgical History: Section, Orthopedic Surgery Additional Past Surgical History / Comment(s): Hip Sx-Pins at 13yo, 14yo Pin removal attempt, 23yo-Pins removed, EGD, Past Anesthesia/Blood Transfusion Reactions: No Reported Reaction Smoking Status: Never smoker - Past Family History Mother Family Medical History: No Reported History Father Family Medical History: Pulmonary Embolus Medications and Allergies Home Medications Medication Instructions Recorded Confirmed Type Levothyroxine Sodium [Synthroid] 125 mcg PO DAILY 05/23/20 05/23/24 History Multivitamins, Thera [Multivitamin 1 tab PO DAILY 01/26/24 05/23/24 History (formulary)] Allergies Allergy/AdvReac Type Severity Reaction Status Date / Time acetaminophen [From Vicodin] AdvReac FAINTING Verified 05/23/24 07:00 hydrocodone [From Vicodin] AdvReac FAINTING Verified 05/23/24 07:00 Surgical - Exam Vital Signs Temp Pulse Resp BP Pulse Ox 98.7 F 86 18 127/60 96 05/23/24 06:41 05/23/24 06:41 05/23/24 06:41 05/23/24 06:41 05/23/24 06:41 Physical exam: General: Well-developed, well-nourished HEENT: Normocephalic, sclerae nonicteric Abdomen: Nontender, nondistended Extremities: No edema Neuro: Alert and oriented Assessment and Plan (1) Morbid obesity Narrative/Plan: 39-year-old female with morbid obesity and associated comorbidities. Will proceed with laparoscopic da Paul assisted sleeve gastrectomy, possible open. The risks of bleeding, infection, stenosis, stricture, leak, abscess, fistula formation, peritonitis, poor weight loss, reflux, vomiting, conversion to an open procedure, aborting sleeve gastrectomy, NE, PE, DVT, and were discussed. The patient understands and wishes to proceed. Current Visit: No Status: Acute Code(s): E66.01 - MORBID (SEVERE) OBESITY DUE TO EXCESS CALORIES SNOMED Code(s): 204418524
[2024-05-23] MEDS ORDERED: fentaNYL (PF) 50 MCG/ML 2 ML AMP ONE (07:23)
[2024-05-23] MEDS ORDERED: NEOSTIGMINE 1 MG/ML 10 ML VIAL ONE (07:23)
[2024-05-23] MEDS ORDERED: ePHEDrine 50 MG/ML 1 ML VIAL ONE (07:23)
[2024-05-23] MEDS ORDERED: GLYCOPYRROLATE 0.2 MG/ML 2 ML VIAL ONE (07:23)
[2024-05-23] MEDS ORDERED: MIDAZOLAM 2 MG/2 ML VIAL ONE (07:23)
[2024-05-23] MEDS ORDERED: SUCCINYLCHOLINE CHLORIDE 200 MG/10 ML VIAL IV ONE (07:23)
[2024-05-23] MEDS ORDERED: ROCURONIUM 10 MG/ML (5 ML VIAL) IV ONE (07:23)
[2024-05-23] MEDS: ENOXAPARIN 40 MG/0.4 ML SYRINGE SQ PRN (07:23)
[2024-05-23] MEDS ORDERED: LIDOCAINE 1% INJ 10MG/ML (20 ML MDV) ONE (07:23)
[2024-05-23] MEDS ORDERED: HYDROmorphone (PF) 1 MG/ML ONE (07:23)
[2024-05-23] MEDS ORDERED: PROPOFOL 10 MG/ML 20 ML VIAL IV ONE (07:23)
[2024-05-23] MEDS: ceFAZolin 3 GM in SODIUM CHLORIDE 0.9% 100 ML IVPB PRN (07:28)
[2024-05-23] MEDS: BUPIVACAINE (PF) 0.25% 30 ML VIAL SQ ONE ×2 (07:50)
[2024-05-23] MEDS: LACTATED RINGERS 1,000 ML IV ONE (08:21)
[2024-05-23] MEDS ORDERED: NALOXONE 0.4 MG/ML 1 ML VIAL IV PRN (09:18)
[2024-05-23] MEDS ORDERED: diphenhydrAMINE 50 MG/ML 1 ML VIAL IVP PRN (09:18)
[2024-05-23] MEDS ORDERED: HYDROmorphone 1 MG/ML 1 ML SYRINGE IVP PRN (09:18)
--- NOTE | 2024-05-23 09:25 | P.OP ---
Date of Procedure: 05/23/24 Procedure(s) Performed: PREOPERATIVE DIAGNOSIS: Morbid obesity, GERD, PCOS, joint pain POSTOPERATIVE DIAGNOSIS: Same PROCEDURE: Da Paul assisted laparoscopic sleeve gastrectomy SURGEON: [facility] EBL: Minimal ANESTHESIA: General COMPLICATIONS: None OPERATIVE PROCEDURE: Patient was placed in the operating table in the supine position. The patient was then placed under general anesthesia at that time. The abdomen was prepped and draped in the usual sterile fashion. A 5 mm optical trocar was placed in the left upper quadrant 20 cm inferior to the xiphoid process. Insufflation took place up to 15 mmHg. No adhesions were seen. A 5 mm subxiphoid incision was made and the medium Dolly retractor was used to elevate the left lobe of liver anteriorly. This was held in place using the fixed arm retractor. An additional 12 mm trocar was placed in the right paramedian location and 2 additional 8 mm trochars were placed in the left upper quadrant one medial and one lateral to the initially placed optical trocar. All of these trochars were placed along the same plane. The initial 5 was then sw itched to an 8 mm trocar. The robot was then docked appropriately. The 8 mm camera was placed in the left paramedian trocar site down viewing. A fenestrated bipolar was placed in arm 1, arm 3 had the vessel sealer, arm 4 had the small grasper retractor. The hiatus was inspected and there was no visible hiatal hernia. At that point I moved to the distal aspect of the greater curvature the stomach. The short gastric vasculature were divided using the vessel sealer. This dissection took place distally until we were 4 cm from the pylorus. The posterior adhesions were divided as well. The dissection then took place proximally along the stomach until the posterior short gastrics were divided and the fundus of the stomach was fully mobilized. Once the stomach was fully mobilized the blunt tipped 40-Greek bougie dilator was advanced into the stomach and advanced all the way to the prepyloric location. The patient's stomach by palpation seemed to be of average thickness. A total of 5 staple loads were utilized. The first was a green load, the next 4 were blue loads. The first 2 firings of the stapler were without [place] seam guard but the last 3 firings were using the [place] seam guard. 2 small areas of oozing along the staple line were noted and controlled using a 12 mm clipper. The stomach was then placed in the right upper quadrant after it was fully excised. The oral gastric tube was reinserted. The stomach was insufflated with approximately 100 mL of methylene blue. No evidence of leak or obstruction was seen. Pressure was then dropped to 8 mm for 2-3 minutes. The staple line was inspected and no bleeding was seen. Tisse[place] fibrin glue was then used along the length of the staple line. The robot was then undocked. The da Paul laparoscope was used and the stomach was removed from the 12 mm trocar site without difficulty. The fascia at the 12mm site was closed using [id number] 0 Vicryl sutures with the laparoscopic suture passer and [place] technique. The insufflation was evacuated. The skin at all 5 incisions were closed using 4-0 Monocryl sutures. Skin glue was then applied. DISPOSITION: Stable to recovery room
[2024-05-23] MEDS: ONDANSETRON 4 MG/2 ML VIAL IVP PRN (10:05)
[2024-05-23] MEDS: HYDROmorphone 0.5 MG/0.5 ML SYRINGE IVP PRN (10:29)
[2024-05-23] MEDS: ALBUTEROL NEBULIZED 2.5 MG/3 ML INHALATION SCH (15:49)
[2024-05-23] MEDS: ACETAMINOPHEN IV (For NPO) 1,000 MG in EMPTY BAG 1 BAG IVPB SCH (17:18)
[2024-05-23] MEDS: HYOSCYAMINE ORAL DROPS 1.875 MG/15 ML BOTTLE PO PRN (17:18)
[2024-05-23] MEDS: ENOXAPARIN 40 MG/0.4 ML SYRINGE SQ SCH (20:05)
[2024-05-23] MEDS: 0.9% NACL WITH KCL 20 MEQ/L 1,000 ML IV SCH (20:06)
[2024-05-23] MEDS: SIMETHICONE 80 MG CHEWABLE PO PRN (22:54)
--- NOTE | 2024-05-24 01:29 | P.CONS ---
History of Present Illness - Reason for Consult Consult date: 05/23/24 Medical management - Chief Complaint Laparoscopic sleeve gastrectomy - History of Present Illness Patient is s/p laparoscopic sleeve gastrectomy. Patient is a 39-year-old female with a known history of hypothyroidism, osteoarthritis and PCOS. She was admitted to the hospital for like to sleeve gastrectomy due to morbid obesity with a BMI 43. Patient had EGD showed gastritis and small polyp. Patient is status post surgery. Currently resting in the bed. Patient is drowsy and also complaining of nausea. Does have some chest tightness. No complaints of shortness of breath. No fever no chills. No headache or dizziness. No new laboratory data available at this time. Review of Systems Constitutional: Patient denies any fever or chills . No generalized weakness or weight loss. Abdomen: Patient complains of nausea. No vomiting. Was also complaining of abdominal pain. No diarrhea. Cardiovascular: Patient denies any chest pain or short of breath no pa lpitations. Respiratory: patient denied any cough or sputum production. No shortness of breath Neurologic: Patient denied any numbness or tingling. no headache. Musculoskeletal: Patient denies any complaints of joint swelling or deformity. Skin: Negative Psychiatric: Negative Endocrine: No heat or cold intolerance. No recent weight gain. Genitourinary: No dysuria or hematuria. All other 14 point ROS negative except the above Past Medical History Past Medical History: Osteoarthritis (OA), Thyroid Disorder Additional Past Medical History / Comment(s): Hypothyroid. osteoarthritis bilateral hips. BARIATRIC EVAL History of Any Multi-Drug Resistant Organisms: None Reported Past Surgical History: Section, Orthopedic Surgery Additional Past Surgical History / Comment(s): Hip Sx-Pins at 13yo, 14yo Pin removal attempt, 23yo-Pins removed, EGD, Past Anesthesia/Blood Transfusion Reactions: No Reported Reaction Past Psychological History: No Psychological Hx Reported Smoking Status: Never smoker Past Alcohol Use History: Occasional Past Drug Use History: None Reported - Past Family History Mother Family Medical History: No Reported History Father Family Medical History: Pulmonary Embolus Medications and Allergies Home Medications Medication Instructions Recorded Confirmed Type Levothyroxine Sodium [Synthroid] 125 mcg PO DAILY 05/23/20 05/23/24 History Multivitamins, Thera [Multivitamin 1 tab PO DAILY 01/26/24 05/23/24 History (formulary)] Allergies Allergy/AdvReac Type Severity Reaction Status Date / Time hydrocodone [From Vicodin] AdvReac FAINTING Verified 05/23/24 07:00 Physical Exam Vitals: Vital Signs Temp Pulse Resp BP Pulse Ox 05/23/24 15:52 98.3 F 78 18 134/85 96 05/23/24 15:30 69 18 128/70 97 05/23/24 15:00 62 16 124/81 95 05/23/24 14:30 77 16 129/58 95 05/23/24 14:00 68 16 116/62 98 05/23/24 13:35 65 16 114/57 98 05/23/24 13:06 63 15 121/59 97 05/23/24 12:51 65 16 138/66 99 05/23/24 12:36 79 15 140/68 99 05/23/24 12:29 67 16 140/69 98 05/23/24 12:00 64 18 137/69 99 05/23/24 11:30 64 16 128/64 98 05/23/24 10:54 73 18 126/60 99 05/23/24 10:39 68 16 117/59 98 05/23/24 10:24 74 16 126/59 97 05/23/24 10:09 63 16 126/56 97 05/23/24 09:54 82 16 124/57 98 05/23/24 09:39 73 16 124/58 96 05/23/24 09:24 99.1 F 87 14 124/59 96 05/23/24 06:41 98.7 F 86 18 127/60 96 Intake and Output 05/23/24 05/23/24 05/23/24 06:59 14:59 22:59 Intake Total 100 1974 450 Output Total 15 Balance 100 1959 450 Intake: IV 100 1974 450 Output: Estimated Blood Loss 15 Other: # Voids 1 Weight 136 kg 136 kg PHYSICAL EXAMINATION: Patient is lying in the bed comfortably, no acute distress, awake alert and oriented.. HEENT: Normocephalic. Neck is supple. Pupils reactive. Nostrils clear. Oral cavity is moist. Neck reveals no JVD, carotid bruits, or thyromegaly. CHEST EXAMINATION: Trachea is central. Symmetrical expansion. Bibasilar diminished sounds otherwise lung sherman clear to auscultation and percussion. CARDIAC: Normal S1, S2 with no gallops. No murmurs ABDOMEN: Soft. Bowel sounds normal. No organomegaly. No abdominal bruits. Extremities: reveal no edema. No clubbing or cyanosis Neurologically awake, alert, oriented x3 with well-coordinated movements. No focal deficits noted Skin: No rash or skin lesions. Psychiatric: Coperative. Nonsuicidal Musculoskeletal: No joint swelling or deformity. Normal range of motion. Assessment and Plan Assessment: Status post sleeve gastrectomy postoperative day 0 Morbid obesity with BMI 40.7 Hypothyroidism History of PCOS DVT prophylaxis patient is on Lovenox subcu. Plan: Patient will be continued on IV hydration with normal saline with potassium supplementation. Symptomatic management for nausea. Advance diet as tolerated. PT OT. Currently patient is NPO. Continue with GI and DVT prophylaxis. Follow-up CBC and BMP tomorrow. Further recommendations based on the clinical course. Thank you kindly for your consult.
[2024-05-24] MEDS: LEVOTHYROXINE 125 MCG TAB PO SCH (06:33)
[2024-05-24 08:49] LABS: Basophils # (A) 0.02 X 10*3/uL (0.00-0.10); Basophils % (A) 0.2 %; Eosinophils # (A) 0.01 X 10*3/uL (0.04-0.35); Eosinophils % (A) 0.1 %; HCT 38.1 % (37.2-46.3); HGB 12.2 g/dL (12.0-15.0); Lymphocytes # (A) 1.46 X 10*3/uL (0.90-5.00); Lymphocytes % (A) 11.2 %; MCH 25.7 pg (27.0-32.0); MCV 80.4 FL (80.0-97.0); Mean Platelet Volume 11.5 FL (9.5-12.2); Monocytes # (A) 0.91 X 10*3/uL (0.20-1.00); NRBC Per 100 WBC 0 X 10*3/uL (0.00-0.01); Neutrophils # (A) 10.57 X 10*3/uL (1.80-7.70); Platelet Count 246 X 10*3/uL (140-440); RBC 4.74 X 10*6/uL (4.10-5.20); RDW 14.7 % (11.5-14.5); WBC 13.03 X 10*3/uL (4.50-10.00)
[2024-05-24 09:04] LABS: Blood Urea Nitrogen 4.1 mg/dL (9.0-27.0); Calcium 8.5 mg/dL (8.7-10.3); Carbon Dioxide 19.8 mmol/L (21.6-31.8); Chloride 106 mmol/L (96-109); Glucose 101 mg/dL (70-110); Magnesium 1.8 mg/dL (1.5-2.4); Phosphorus 2.4 mg/dL (2.4-5.1); Potassium 3.6 mmol/L (3.5-5.5); Sodium 138 mmol/L (135-145)
--- NOTE | 2024-05-24 10:42 | FL ---
EXAMINATION TYPE: FL UGI DATE OF EXAM: 05/24/2024 CLINICAL HISTORY: Status post gastric sleeve Contrast: ISOVUE 370, 20 ML FLUORO TIME: 51 SEC The patient ingested contrast without difficulty or delay. Noted are postsurgical changes of gastric sleeve. There is no evidence for leak or obstruction. Contrast is noted within the duodenum. IMPRESSION: Post-surgical change of gastric sleeve without evidence for obstruction or leak at this point in time.
[2024-05-24] MEDS: KETOROLAC 15 MG/ML 1 ML VIAL IVP SCH (12:29)
[2024-05-24] MEDS: PANTOPRAZOLE 40 MG/10 ML VIAL IV SCH (12:29)
[2024-05-24] MEDS: DEXAMETHASONE SOD PHOSPHATE 4 MG/ML 1 ML VIAL IVP SCH (12:29)
[2024-05-24] MEDS: MULTIVITAMINS, THERA 1 EACH TAB PO SCH (12:29)
--- NOTE | 2024-05-24 15:19 | P.PN ---
Subjective Progress Note Date: 05/24/24 CHIEF COMPLAINT: Morbid obesity HISTORY OF PRESENT ILLNESS: Patient postop day 1 status post laparoscopic sleeve gastrectomy. Patient complaining of nausea. She has been belching. She does report some abdominal pain. She denies any flatus. She is urinating without difficulty. She has been ambulating. Upper GI shows no evidence of leak or obstruction. Afebrile. WBC 13 Hgb 12.2 platelets 246 creatinine 0.5 PHYSICAL EXAM: VITAL SIGNS: Reviewed. GENERAL: Well-developed in no acute distress. HEENT: No sclera icterus. Extraocular movements grossly intact. Moist buccal mucosa. Head is atraumatic, normocephalic. ABDOMEN: Soft. Nondistended. Abdominal binder in place NEUROLOGIC: Alert and oriented. Cranial nerves II through XII grossly intact. ASSESSMENT: 1. Morbid obesity PLAN: -Start bariatric clear liquid diet -Decadron added for nausea. Continue scopolamine patch and Zofran -Continue IV fluids -Continue pain management. Toradol scheduled ordered -Encourage patient to ambulate -Repeat CBC in a.m. for leukocytosis -DVT prophylaxis Lovenox and GI prophylaxis [facility] Admin note has been reviewed by physician. Signing provider agrees with the documented findings, assessment, and plan of care. I have personally seen and examined the patient, reviewed the SYSTEMS ACCOUNTANT /PAs history, exam and MDM and agree with the assessment and plan as written. Based on total visit time, I have performed more than 50% of the visit. As above: Patient doing better this afternoon. Had nausea earlier today. Upper GI reviewed. Begin bariatric clears. Anticipate discharge in a.m. Objective - Vital Signs Vital signs: Vital Signs Temp 99.7 F H 05/24/24 14:17 Pulse 80 05/24/24 14:17 Resp 18 05/24/24 14:17 BP 133/84 05/24/24 14:17 Pulse Ox 95 05/24/24 14:17 FiO2 Intake & Output 05/23/24 05/24/24 05/24/24 18:59 06:59 18:59 Intake Total 2425 Output Total 15 Balance 2410 Weight 136 kg Intake: IV 2425 Output: Estimated Blood Loss 15 Other: # Voids 1 2 2 - Labs CBC & Chem 7: 05/24/24 04:30 05/24/24 04:30 Labs: Abnormal Lab Results - Last 24 Hours (Table) 05/24/24 05/24/24 Range/Units 04:30 04:30 WBC 13.03 H (4.50-10.00) X 10*3/uL MCH 25.7 L (27.0-32.0) pg RDW 14.7 H (11.5-14.5) % Immature Gran # 0.06 H (0.00-0.04) X 10*3/uL Neutrophils # 10.57 H (1.80-7.70) X 10*3/uL Eosinophils # 0.01 L (0.04-0.35) X 10*3/uL Carbon Dioxide 19.8 L (21.6-31.8) mmol/L Anion Gap 12.20 H (4.00-12.00) mmol/L BUN 4.1 L (9.0-27.0) mg/dL Creatinine 0.5 L (0.6-1.5) mg/dL BUN/Creatinine Ratio 8.20 L (12.00-20.00) Ratio Calcium 8.5 L (8.7-10.3) mg/dL
--- NOTE | 2024-05-24 15:58 | P.PN ---
Subjective Progress Note Date: 05/24/24 - Reason for Consult Consult date: 05/23/24 Medical management - Chief Complaint Laparoscopic sleeve gastrectomy - History of Present Illness Patient is s/p laparoscopic sleeve gastrectomy. Patient is a 39-year-old female with a known history of hypothyroidism, osteoarthritis and PCOS. She was admitted to the hospital for like to sleeve gastrectomy due to morbid obesity with a BMI 43. Patient had EGD showed gastritis and small polyp. Patient is status post surgery. Currently resting in the bed. Patient is drowsy and also complaining of nausea. Does have some chest tightness. No complaints of shortness of breath. No fever no chills. No headache or dizziness. No new laboratory data available at this time. 05/24/2024 Patient is seen and evaluated in follow-up this morning continuing to report nausea and maintained on bariatric diet with not much of an appetite. Patient reports chest pain and has been belching. Patient is reporting passing gas but no bowel movement as of yet. Patient reports to voiding with no difficulties. Patient is post upper GI series showing postsurgical changes of gastric sleeve without evidence of obstruction or leak. Patient did have a low-grade temp and have encouraged the patient to continue with incentive spirometer. Patient was found sleeping and reports from nursing staff that she has been sleeping most of the day. White count this morning was 13.03, hemoglobin 12.2, platelets are stable at 246, sodium 138, potassium 3.6, creatinine is 0.5 and magnesium 1.8. Encouraged to increase activity as tolerated with frequent walking Review of systems: Constitutional: reports of fatigue, low-grade fever, denies chills Cardiovascular: reports of chest pain, denies palpitations Respiratory: reports of occasional shortness of breath, denies cough GI: reports of nausea, no vomiting, or diarrhea, patient reports passing gas with no bowel movement as of yet : No reports of dysuria or retention Neurovascular: reports of generalized weakness All medications have been reviewed PHYSICAL EXAMINATION: Patient is a 39-year-old female who is asleep although arousable, alert and oriented x 3, well-developed, morbidly obese. HEENT: Normocephalic. Neck is supple. Pupils reactive. Nostrils clear. Oral cavity is moist. Neck reveals no JVD, carotid bruits, or thyromegaly. CHEST EXAMINATION: Trachea is central. Symmetrical expansion. Bibasilar d iminished sounds otherwise lung sherman clear to auscultation and percussion. CARDIAC: Normal S1, S2 with no gallops. No murmurs ABDOMEN: Soft. Obese, tender on palpation bowel sounds normal. No organomegaly. No abdominal bruits. Extremities: reveal no edema. No clubbing or cyanosis Neurologically awake, alert, oriented x3 with well-coordinated movements. No focal deficits noted Skin: No rash or skin lesions. Psychiatric: Cooperative. Non-suicidal Musculoskeletal: No joint swelling or deformity. Normal range of motion. Assessment: Status post sleeve gastrectomy postoperative day 1 Morbid obesity with BMI 40.7 Hypothyroidism History of PCOS DVT prophylaxis patient is on Lovenox subcu. GI prophylaxis Full code Plan: Patient will be continued on IV hydration with normal saline with potassium supplementation. Symptomatic management for nausea. Advance diet as tolerated per surgery and patient is continued on clear liquid diet. Encouraged to increase activity as tolerated with frequent walking around the halls. PT/OT therapy consulted Encourage the patient to continue using incentive spirometer at least 10 times every hour while awake. Patient needs encouragement as patient has been sleeping most of the day Continue with GI and DVT prophylaxis. Follow-up CBC and BMP tomorrow. We will continue to follow with general surgery during hospitalization. Thank you kindly for this consultation. The impression and plan of care has been dictated by Cheyenne Dexter, Nurse Practitioner as directed. Dr. Feng MD I have performed a history and examination and MDM of this patient, discussed the same with the dictator, and agree with the dictator's assessment and plan as written ,documented as a scribe. Based on total visit time, I have performed more than 50% of the visit. Objective - Vital Signs Vital signs: Vital Signs Temp 99.0 F 05/24/24 07:23 Pulse 75 05/24/24 08:00 Resp 17 05/24/24 08:00 BP 142/85 05/24/24 07:23 Pulse Ox 97 05/24/24 07:23 FiO2 Intake & Output 05/23/24 05/24/24 05/24/24 18:59 06:59 18:59 Intake Total 2425 Output Total 15 Balance 2410 Weight 136 kg Intake: IV 2425 Output: Estimated Blood Loss 15 Other: # Voids 1 2 1 - Labs CBC & Chem 7: 05/24/24 04:30 05/24/24 04:30 Labs: Abnormal Lab Results - Last 24 Hours (Table) 05/24/24 05/24/24 Range/Units 04:30 04:30 WBC 13.03 H (4.50-10.00) X 10*3/uL MCH 25.7 L (27.0-32.0) pg RDW 14.7 H (11.5-14.5) % Immature Gran # 0.06 H (0.00-0.04) X 10*3/uL Neutrophils # 10.57 H (1.80-7.70) X 10*3/uL Eosinophils # 0.01 L (0.04-0.35) X 10*3/uL Carbon Dioxide 19.8 L (21.6-31.8) mmol/L Anion Gap 12.20 H (4.00-12.00) mmol/L BUN 4.1 L (9.0-27.0) mg/dL Creatinine 0.5 L (0.6-1.5) mg/dL BUN/Creatinine Ratio 8.20 L (12.00-20.00) Ratio Calcium 8.5 L (8.7-10.3) mg/dL
[2024-05-24] MEDS: 0.9% NACL WITH KCL 20 MEQ/L 1,000 ML IV SCH (20:15)
[2024-05-25 03:17] VITALS: TEMP 98.1
[2024-05-25] MEDS ORDERED: bisacodyL 5 MG TABLET.DR PO PRN (08:00)
[2024-05-25 08:30] VITALS: BP 124/73; PULSE 72; RESP 16
[2024-05-25 10:17] VITALS: BMI 40.6
[2024-05-25 10:38] LABS: Basophils # (A) 0.01 X 10*3/uL (0.00-0.10); Basophils % (A) 0.1 %; Eosinophils # (A) 0 X 10*3/uL (0.04-0.35); Eosinophils % (A) 0 %; HCT 37.7 % (37.2-46.3); HGB 11.9 g/dL (12.0-15.0); Lymphocytes # (A) 1.09 X 10*3/uL (0.90-5.00); Lymphocytes % (A) 11.3 %; MCH 25.8 pg (27.0-32.0); MCHC 31.6 g/dL (32.0-37.0); MCV 81.6 FL (80.0-97.0); Mean Platelet Volume 11.4 FL (9.5-12.2); Monocytes # (A) 0.48 X 10*3/uL (0.20-1.00); NRBC Per 100 WBC 0 X 10*3/uL (0.00-0.01); Neutrophils # (A) 8.03 X 10*3/uL (1.80-7.70); Neutrophils % (A) 83.2 %; Platelet Count 259 X 10*3/uL (140-440); RBC 4.62 X 10*6/uL (4.10-5.20); RDW 15.1 % (11.5-14.5); WBC 9.65 X 10*3/uL (4.50-10.00)
--- NOTE | 2024-05-25 11:46 | P.DS ---
Providers Date of admission: 05/23/24 09:15 Expected date of discharge: 05/25/24 Attending physician: Tommy Madrid Consults: 05/23/24 09:18 Consult Physician Routine Consulting Provider: Jose Mccullough Consult Reason/Comments: med mgmt Do you want consulting provider notified?: Yes Primary care physician: Niya Weems [facility] Course: Patient came in on Thursday for elective sleeve gastrectomy. Did fairly well although had some gas pains and nausea initially. Tolerating liquids well at this time. She has had about 12 ounces thus far today. She is anxious for discharge. Will plan discharge home. Follow-up Thursday in the bariatric center. Monitor liquid intake at home. Plan - Discharge Summary Discharge Rx Participant: Yes New Discharge Prescriptions: No Action Levothyroxine Sodium [Synthroid] 125 mcg PO DAILY Multivitamins, Thera [Multivitamin (formulary)] 1 tab PO DAILY Discharge Medication List Levothyroxine Sodium [Synthroid] 125 mcg PO DAILY 05/23/20 [History] Multivitamins, Thera [Multivitamin (formulary)] 1 tab PO DAILY 01/26/24 [History] Patient Instructions/Handouts: *Surgery [facility] - (Anesthesia) Discharge Instructions Outpatient Surgery, *Surgery [facility] - Scopalamine Patch Instructions, Laparoscopic Sleeve Gastrectomy (DC)
--- NOTE | 2024-05-28 10:54 | P.PN ---
Subjective Progress Note Date: 05/25/24 - Reason for Consult Consult date: 05/23/24 Medical management - Chief Complaint Laparoscopic sleeve gastrectomy - History of Present Illness Patient is s/p laparoscopic sleeve gastrectomy. Patient is a 39-year-old female with a known history of hypothyroidism, osteoarthritis and PCOS. She was admitted to the hospital for like to sleeve gastrectomy due to morbid obesity with a BMI 43. Patient had EGD showed gastritis and small polyp. Patient is status post surgery. Currently resting in the bed. Patient is drowsy and also complaining of nausea. Does have some chest tightness. No complaints of shortness of breath. No fever no chills. No headache or dizziness. No new laboratory data available at this time. 05/24/2024 Patient is seen and evaluated in follow-up this morning continuing to report nausea and maintained on bariatric diet with not much of an appetite. Patient reports chest pain and has been belching. Patient is reporting passing gas but no bowel movement as of yet. Patient reports to voiding with no difficulties. Patient is post upper GI series showing postsurgical changes of gastric sleeve without evidence of obstruction or leak. Patient did have a low-grade temp and have encouraged the patient to continue with incentive spirometer. Patient was found sleeping and reports from nursing staff that she has been sleeping most of the day. White count this morning was 13.03, hemoglobin 12.2, platelets are stable at 246, sodium 138, potassium 3.6, creatinine is 0.5 and magnesium 1.8. Encouraged to increase activity as tolerated with frequent walking 05/25/2024 Patient is seen in follow-up today and reports she is feeling much better. Patient was able to shower and has been up and walking. Patient tolerating clear liquid diet and will continue and slowly advance per surgical recommendations. Patient is medically stable and cleared for discharge by surgery today. Home medications reviewed and resumed and patient also instructed to follow-up with primary care provider on discharge. Encourage incentive spirometer use including taking home and continue to use 10 times an hour while awake. Review of systems: Constitutional: No reports of fatigue, no further low-grade fever, denies chills Cardiovascular: reports of chest pain, denies palpitations Respiratory: No reports of shortness of breath, denies cough GI: No reports of nausea, no vomiting, or diarrhea, patient reports passing gas with no bowel movement as of yet : No reports of dysuria or retention Neurovascular: reports of generalized weakness All medications have been reviewed PHYSICAL EXAMINATION: Patient is a 39-year-old female who is awake, alert and oriented x 3, well- developed, morbidly obese. HEENT: Normocephalic. Neck is supple. Pupils reactive. Nostrils clear. Oral cavity is moist. Neck reveals no JVD, carotid bruits, or thyromegaly. CHEST EXAMINATION: Trachea is central. Symmetrical expansion. Bibasilar diminished sounds otherwise lung sherman clear to auscultation and percussion. CARDIAC: Normal S1, S2 with no gallops. No murmurs ABDOMEN: Soft. Obese, less tender on palpation bowel sounds normal. No organomegaly. No abdominal bruits. Extremities: reveal no edema. No clubbing or cyanosis Neurologically awake, alert, oriented x3 with well-coordinated movements. No focal deficits noted Skin: No rash or skin lesions. Psychiatric: Cooperative. Non-suicidal Musculoskeletal: No joint swelling or deformity. Normal range of motion. Assessment: Status post sleeve gastrectomy postoperative day 2 Morbid obesity with BMI 40.7 Hypothyroidism History of PCOS DVT prophylaxis patient is on Lovenox subcu. GI prophylaxis Full code Plan: Patient will be continued on IV hydration with normal saline with potassium supplementation. Symptomatic management for nausea. Advance diet as tolerated per surgery and patient is continued on clear liquid diet. Encouraged to increase activity as tolerated with frequent walking around the halls. Patient has been up and walking and doing well was able to shower today Encourage the patient to continue using incentive spirometer at least 10 times every hour while awake. Encouraged the patient to take the incentive spirometer at home and continue using Continue with GI and DVT prophylaxis. Patient is medically stable for discharge home once cleared by surgery We will continue to follow with general surgery during hospitalization. Thank you kindly for this consultation. The impression and plan of care has been dictated by Cheyenne Dexter, Nurse Practitioner as directed. Dr. Feng MD I have performed a history and examination and MDM of this patient, discussed the same with the dictator, and agree with the dictator's assessment and plan as written ,documented as a scribe. Based on total visit time, I have performed more than 50% of the visit. Objective - Vital Signs Vital signs: Vital Signs Temp 98.1 F 05/25/24 07:15 Pulse 72 05/25/24 07:15 Resp 16 05/25/24 07:15 BP 124/73 05/25/24 07:15 Pulse Ox 96 05/25/24 09:12 FiO2 - Labs CBC & Chem 7: 05/25/24 06:53 05/24/24 04:30
== END 2024-05-25 13:08 | disposition home or self-care (01) ==
LOC: OR 06:25 → 4SSUR 09:15
PROVIDERS: ADMIT Surgery; ATTEND Surgery
DX: E66.01 Morbid (severe) obesity due to excess calories (principal); Z68.41 Body mass index [BMI] 40.0-44.9, adult; R07.89 Other chest pain; R14.2 Eructation; E03.9 Hypothyroidism, unspecified; E28.2 Polycystic ovarian syndrome; K21.9 Gastro-esophageal reflux disease without esophagitis; K31.7 Polyp of stomach and duodenum; K29.70 Gastritis, unspecified, without bleeding; M19.90 Unspecified osteoarthritis, unspecified site; Z79.890 Hormone replacement therapy; Z88.5 Allergy status to narcotic agent; Z88.6 Allergy status to analgesic agent
CPT/HCPCS: 43775; S2900; 74240; 80048; 81025; 83735; 84100; 85025; 88307; 94640; 94760; 96372

== ENCOUNTER → 2024-06-21 | Outpatient (CLI) | payer BC ==
[2024-06-21 18:19] LABS: HCT 40.3 % (37.2-46.3); HGB 12.6 g/dL (12.0-15.0); MCH 26.1 pg (27.0-32.0); MCHC 31.3 g/dL (32.0-37.0); MCV 83.4 FL (80.0-97.0); Mean Platelet Volume 12.7 FL (9.5-12.2); NRBC Per 100 WBC 0 X 10*3/uL (0.00-0.01); Platelet Count 227 X 10*3/uL (140-440); RBC 4.83 X 10*6/uL (4.10-5.20); RDW 15.2 % (11.5-14.5); WBC 6.68 X 10*3/uL (4.50-10.00)
[2024-06-21 19:51] LABS: ALT 59 U/L (8-44); AST 30 U/L (13-35); Albumin 4.3 g/dL (3.8-4.9); Albumin/Globulin Ratio 1.87 Ratio (1.60-3.17); Alkaline Phosphatase 70 U/L (41-126); Blood Urea Nitrogen 13.2 mg/dL (9.0-27.0); Calcium 9.3 mg/dL (8.7-10.3); Carbon Dioxide 21.6 mmol/L (21.6-31.8); Chloride 104 mmol/L (96-109); Globulin 2.3 g/dL (1.6-3.3); Glucose 94 mg/dL (70-110); Iron 23 UG/DL (50-170); Potassium 3.8 mmol/L (3.5-5.5); Sodium 140 mmol/L (135-145); Total Bilirubin 0.3 mg/dL (0.3-1.2); Total Protein 6.6 g/dL (6.2-8.2)
== END | disposition home or self-care (01) ==
LOC: LABWHC1 14:34
PROVIDERS: ATTEND Surgery
DX: E66.01 Morbid (severe) obesity due to excess calories
CPT/HCPCS: 36415; 80053; 82306; 82607; 82746; 83540; 84425; 85027

== ENCOUNTER → 2024-07-19 | Outpatient (CLI) | payer BC ==
[2024-07-19 14:56] VITALS: BP 120/80; PULSE 76; RESP 16; TEMP 98.2; BMI 36.3
--- NOTE | 2024-07-19 21:14 | P.BASOAP ---
Subjective Progress Note Date: 07/19/24 Principal diagnosis: Morbid obesity Patient returns for recheck. Sleeve in April. Doing well. Has lost 14 pounds. Still on antiacids. Says she is more heartburn now. Denies pain. No vomiting. Her labs checked last month showed a low iron of 23 and a low vitamin D of 27. Patient with history of low iron in the past. Previously was 39 last fall. Patient recent started her multivitamin with iron. Objective - Vital Signs Vital signs: Vital Signs Temp 98.2 F 07/19/24 14:52 Pulse 76 07/19/24 14:52 Resp 16 07/19/24 14:52 BP 120/80 07/19/24 14:52 Pulse Ox FiO2 Intake & Output 07/19/24 07/19/24 07/20/24 06:59 18:59 06:59 Weight 118.841 kg - Exam Abdomen: Soft, nontender, nondistended Assessment/Plan (1) Morbid obesity Narrative/Plan: Patient doing well after previously gastrectomy. Continue dietary exercise regimen. Continue antiacids. Recheck 4 to 6 weeks. Check labs at that time. Plan: Date: 07/19/24 Initial Weight: 142.882 kg Initial BMI: 43.6 Current Weight: 118.841 kg Current BMI: 36.3 Type of Surgery: Vertical Sleeve Gastrectomy Total Volume in Band: Previous Volume: Volume Removed: Volume Added: Band Size:
== END ==
LOC: BARWHC3 13:59
PROVIDERS: ATTEND Surgery
CPT/HCPCS: 99211

== ENCOUNTER → 2024-09-20 | Outpatient (CLI) | payer BC ==
[2024-09-20 19:08] LABS: HCT 42.2 % (37.2-46.3); MCH 25.3 pg (27.0-32.0); MCHC 30.8 g/dL (32.0-37.0); MCV 82.1 FL (80.0-97.0); Mean Platelet Volume 11.6 FL (9.5-12.2); NRBC Per 100 WBC 0 X 10*3/uL (0.00-0.01); Platelet Count 247 X 10*3/uL (140-440); RBC 5.14 X 10*6/uL (4.10-5.20); RDW 15.3 % (11.5-14.5); WBC 8.81 X 10*3/uL (4.50-10.00)
[2024-09-20 20:15] LABS: ALT 14 U/L (8-44); AST 16 U/L (13-35); Albumin 4.3 g/dL (3.8-4.9); Albumin/Globulin Ratio 1.65 Ratio (1.60-3.17); Alkaline Phosphatase 68 U/L (41-126); BUN/Creat Ratio 21.71 Ratio (12.00-20.00); Blood Urea Nitrogen 15.2 mg/dL (9.0-27.0); Calcium 9.4 mg/dL (8.7-10.3); Carbon Dioxide 24.1 mmol/L (21.6-31.8); Chloride 104 mmol/L (96-109); Globulin 2.6 g/dL (1.6-3.3); Glucose 88 mg/dL (70-110); Iron 27 UG/DL (50-170); Potassium 3.9 mmol/L (3.5-5.5); Sodium 139 mmol/L (135-145); Total Bilirubin 0.4 mg/dL (0.3-1.2); Total Protein 6.9 g/dL (6.2-8.2)
== END | disposition home or self-care (01) ==
LOC: LABWHC1 14:39
PROVIDERS: ATTEND Surgery
DX: E89.1 Postprocedural hypoinsulinemia (principal); K90.89 Other intestinal malabsorption; E55.9 Vitamin D deficiency, unspecified; E66.01 Morbid (severe) obesity due to excess calories; D50.8 Other iron deficiency anemias; Z68.41 Body mass index [BMI] 40.0-44.9, adult
CPT/HCPCS: 36415; 80053; 82306; 82607; 82746; 83036; 83540; 84425; 85027

== ENCOUNTER → 2024-09-20 | Outpatient (CLI) | payer BC ==
[2024-09-20 14:18] VITALS: BP 125/73; PULSE 80; RESP 16; TEMP 97.5; BMI 31.6
--- NOTE | 2024-09-20 14:32 | P.BASOAP ---
Subjective Progress Note Date: 09/20/24 Principal diagnosis: Morbid obesity Patient returns for recheck. Last seen 7 to 8 weeks ago. Has done very well with her weight loss. She is lost 34 pounds since her last visit. The patient was having heartburn but that has resolved. She is no longer taking antiacids. Dysphagia to chicken at times. No vomiting. Objective - Vital Signs Vital signs: Vital Signs Temp 97.5 F L 09/20/24 14:15 Pulse 80 09/20/24 14:15 Resp 16 09/20/24 14:15 BP 125/73 09/20/24 14:15 Pulse Ox FiO2 Intake & Output 09/19/24 09/20/24 09/20/24 18:59 06:59 18:59 Weight 103.419 kg - Exam Abdomen: Soft, nontender, nondistended Assessment/Plan (1) Morbid obesity Narrative/Plan: 39-year-old female doing well after recent sleeve gastrectomy in April. Excellent weight loss. Continue dietary and exercise regimen. Check 3-month labs. Follow-up October. Plan: Date: 09/20/24 Initial Weight: 142.882 kg Initial BMI: 43.6 Current Weight: 103.419 kg Current BMI: 31.6 Type of Surgery: Total Volume in Band: Previous Volume: Volume Removed: Volume Added: Band Size:
== END ==
LOC: BARWHC3 14:07
PROVIDERS: ATTEND Surgery
DX: E66.01 Morbid (severe) obesity due to excess calories (principal); Z98.84 Bariatric surgery status; Z71.3 Dietary counseling and surveillance; Z68.31 Body mass index [BMI] 31.0-31.9, adult; Z88.5 Allergy status to narcotic agent
CPT/HCPCS: 99211

== ENCOUNTER → 2024-11-01 | Outpatient (CLI) | payer BC, MEDICAID ==
[2024-11-01 15:39] VITALS: BP 103/70; PULSE 71; RESP 16; TEMP 97.9; BMI 28.5
--- NOTE | 2024-11-01 15:51 | P.BASOAP ---
Subjective Progress Note Date: 11/01/24 Principal diagnosis: Morbid obesity Patient returns for recheck. Last seen 6 weeks ago. Doing well. Still having difficulty with dry chicken. Otherwise doing well. No heartburn. No nausea or vomiting. Recent labs performed in August still show a low iron slightly improved from previous. Iron level currently 27. Excellent weight loss. Objective - Vital Signs Vital signs: Vital Signs Temp 97.9 F 11/01/24 15:36 Pulse 71 11/01/24 15:36 Resp 16 11/01/24 15:36 BP 103/70 11/01/24 15:36 Pulse Ox FiO2 Intake & Output 10/31/24 11/01/24 11/01/24 18:59 06:59 18:59 Weight 93.44 kg - Exam Abdomen: Soft, nontender, nondistended Assessment/Plan (1) Morbid obesity Narrative/Plan: 39-year-old female doing well after previous sleeve gastrectomy. Continue dietary and exercise regimen. Discussed options of starting supplemental iron with the patient. She like to avoid that if possible and says that her current vitamins have more iron in them. Will plan recheck labs next visit. Follow-up 2 months. Plan: Date: 11/01/24 Initial Weight: 142.882 kg Initial BMI: 43.6 Current Weight: 93.44 kg Current BMI: 28.5 Type of Surgery: Vertical Sleeve Gastrectomy Total Volume in Band: Previous Volume: Volume Removed: Volume Added: Band Size:
== END ==
LOC: BARWHC3 15:12
PROVIDERS: ATTEND Surgery
DX: E66.01 Morbid (severe) obesity due to excess calories (principal); Z68.28 Body mass index [BMI] 28.0-28.9, adult
CPT/HCPCS: 99211

== ENCOUNTER → 2025-01-03 | Outpatient (CLI) | payer MEDICAID ==
[2025-01-03 15:19] VITALS: BP 110/69; PULSE 57; RESP 16; TEMP 98.3; BMI 26.0
--- NOTE | 2025-01-03 15:30 | P.BASOAP ---
Subjective Progress Note Date: 01/03/25 Principal diagnosis: Morbid obesity Patient returns for recheck. Doing well. BMI down to 26 at this point. No nausea or vomiting. No GERD. No antiacid use. Patient noticed some increased weight loss after increasing her calories from about 1000 to 1300/day. Patient previously noted to have a low iron. Planned repeat iron today. Objective - Vital Signs Vital signs: Vital Signs Temp 98.3 F 01/03/25 15:17 Pulse 57 L 01/03/25 15:17 Resp 16 01/03/25 15:17 BP 110/69 01/03/25 15:17 Pulse Ox FiO2 Intake & Output 01/02/25 01/03/25 01/03/25 18:59 06:59 18:59 Weight 85.275 kg - Exam Abdomen: Soft, nontender, nondistended Assessment/Plan (1) Morbid obesity Narrative/Plan: Patient doing well after sleeve gastrectomy last April. Continue dietary and exercise regimen. Check repeat labs at this time. Follow-up 2 months. Plan: Date: 01/03/25 Initial Weight: 142.882 kg Initial BMI: 43.6 Current Weight: 85.275 kg Current BMI: 26.0 Type of Surgery: Vertical Sleeve Gastrectomy Total Volume in Band: Previous Volume: Volume Removed: Volume Added: Band Size:
[2025-01-03 18:49] LABS: HCT 40.4 % (37.2-46.3); HGB 13.2 g/dL (12.0-15.0); MCHC 32.7 g/dL (32.0-37.0); MCV 85.8 FL (80.0-97.0); NRBC Per 100 WBC 0 X 10*3/uL (0.00-0.01); Platelet Count 273 X 10*3/uL (140-440); RBC 4.71 X 10*6/uL (4.10-5.20); RDW 14.2 % (11.5-14.5); WBC 7.84 X 10*3/uL (4.50-10.00)
[2025-01-03 19:20] LABS: ALT 21 U/L (8-44); AST 18 U/L (13-35); Albumin 4.3 g/dL (3.8-4.9); Albumin/Globulin Ratio 1.72 Ratio (1.60-3.17); Alkaline Phosphatase 59 U/L (41-126); Blood Urea Nitrogen 17.5 mg/dL (9.0-27.0); Calcium 9.3 mg/dL (8.7-10.3); Carbon Dioxide 24.7 mmol/L (21.6-31.8); Chloride 105 mmol/L (96-109); Globulin 2.5 g/dL (1.6-3.3); Glucose 91 mg/dL (70-110); Potassium 4.2 mmol/L (3.5-5.5); Sodium 142 mmol/L (135-145); Total Bilirubin 0.2 mg/dL (0.3-1.2); Total Protein 6.8 g/dL (6.2-8.2)
[2025-01-03 20:09] LABS: Iron 21 UG/DL (50-170)
== END ==
LOC: BARWHC3 15:02
PROVIDERS: ATTEND Surgery
DX: E66.01 Morbid (severe) obesity due to excess calories (principal); Z68.26 Body mass index [BMI] 26.0-26.9, adult; Z88.5 Allergy status to narcotic agent
CPT/HCPCS: 80053; 82306; 82607; 82746; 83540; 84425; 85027; 99211

== ENCOUNTER → 2025-03-07 | Outpatient (CLI) | payer MEDICAID ==
[2025-03-07 14:13] VITALS: BP 114/70; PULSE 62; RESP 16; TEMP 97.8; BMI 24.7
--- NOTE | 2025-03-07 14:35 | P.BASOAP ---
Subjective Progress Note Date: 03/07/25 Principal diagnosis: Morbid obesity Patient returns for recheck. Was last seen in December. Had lab work performed demonstrating iron of 21 without anemia. Patient still having heavy menstrual flow. No rectal bleeding or melena. Was previously seen at [facility] by one of the heme-onc specialist cannot remember who. Says she was seeing them partly for the anemia and partly for elevated red blood cells. Patient is continue to do well from a sleeve point of view. BMI now down to 24.7. She has lost 9 pounds since her last visit. No nausea or vomiting. No GERD. Does not take antiacids. Patient was having some constipation but started taking a supplement called [employer] gut with good results and normal bowel function. Objective - Vital Signs Vital signs: Vital Signs Temp 97.8 F 03/07/25 14:11 Pulse 62 03/07/25 14:11 Resp 16 03/07/25 14:11 BP 114/70 03/07/25 14:11 Pulse Ox FiO2 Intake & Output 03/06/25 03/07/25 03/07/25 18:59 06:59 18:59 Weight 81.193 kg - Exam Abdomen: Soft, nontender, nondistended Assessment/Plan (1) Morbid obesity Narrative/Plan: 39-year-old female doing quite well after prior sleeve gastrectomy. Continue dietary and exercise regimen. Will make appointment for patient to be seen at [facility] again regarding her persistent anemia. Sounds like this has been an issue for her her entire life but has been worse lately. Likely secondary to decreased dietary intake and heavy menstrual flow. Patient will make an appointment to see gynecology as well. Follow-up May. Check 1 year labs at that time. Plan: Date: 03/07/25 Initial Weight: 142.882 kg Initial BMI: 43.6 Current Weight: 81.193 kg Current BMI: 24.7 Type of Surgery: Vertical Sleeve Gastrectomy Total Volume in Band: Previous Volume: Volume Removed: Volume Added: Band Size:
== END ==
LOC: BARWHC3 14:05
PROVIDERS: ATTEND Surgery
DX: E66.01 Morbid (severe) obesity due to excess calories (principal); Z88.5 Allergy status to narcotic agent; Z68.24 Body mass index [BMI] 24.0-24.9, adult
CPT/HCPCS: 99211